=== PATIENT | male | born 1950 | race Caucasian/White ===

== ENCOUNTER 2022-06-06 13:29 | Outpatient (CLI) | payer MEDICARE, SELFPAY ==
--- NOTE | ~2022-06-06 | XR_ITS ---
XR chest 2V 06/06/2022 13:51 Indication: Acute bronchitis with bronchospasm Procedure: 2 view chest Comparison: No prior studies for comparison. Findings: There is consolidation of the left upper lobe with volume loss. There are nodular densities of the left mid and upper thorax. Heart size normal. There is left basilar atelectasis/scarring. Sma ll left pleural effusion. Impression: 1: Consolidation left upper lobe medially with volume loss. Differential diagnosis includes atelectas is and/or pneumonia. Cannot exclude centrally obstructing mass. There are nodules in the left mid and upper lung. Follow-up CT chest with contrast recommended. Reviewed, dictated and finalized at location A. Impression: 1: Consolidation left upper lobe medially with volume loss. Differential diagno sis includes atelectasis and/or pneumonia. Cannot exclude centrally obstructing mass. There are nodules in the left mid and upper lung. Follow-up CT chest wit h contrast recommended.
== END 2022-06-06 13:30 | disposition home or self-care (01) ==
LOC: CHSIMG 13:34
PROVIDERS: PCP Physician Assistant; Visit Provider Physician Assistant
DX: J20.9 Acute bronchitis, unspecified (principal)
CPT/HCPCS: 71046

== ENCOUNTER 2022-08-15 09:01 | Emergency (ER) | payer MEDICARE, SELFPAY ==
[2022-08-15 09:05] VITALS: BP 94/60; PULSE 80; RESP 20; TEMP 36.5; O2SAT 95
--- NOTE | 2022-08-15 09:07 | ED.GENADULT ---
HPI - General Adult General Chief complaint: Unspecified Stated complaint: LOW BLOOD PRESSURE Time Seen by Provider: 08/15/22 09:03 Source: patient and RN notes reviewed Mode of arrival: ambulatory Limitations: no limitations History of Present Illness HPI narrative: patient states his blood pressures been running low past few days. Does not really have any symptoms. He just monitors it at home. He has a multitude of other problems including AFib, hypertension, type 2 diabetes, hyperlipidemia, COPD. [facility] because of blood pressure was 77/49 MD complaint: Low Blood Pressure Onset (ago): day(s) (3-4) Associated symptoms: denies other symptoms Treatments prior to arrival: none Related Data Home Medications Medication Instructions Recorded Confirmed albuterol 90 mcg/actuation aerosol 90 mcg inhalation Q4-6H PRN 08/15/22 08/15/22 inhaler Wheezing apixaban 5 mg tablet 5 mg PO BID 08/15/22 08/15/22 carvedilol 25 mg tablet 25 mg PO BID 08/15/22 08/15/22 cyclobenzaprine 10 mg tablet 10 mg PO TID PRN Pain 08/15/22 08/15/22 diclofenac sodium 1 % topical gel 2 g topical QID 08/15/22 08/15/22 empagliflozin 25 mg tablet 25 mg PO DAILY 08/15/22 08/15/22 hydroxychloroquine 200 mg tablet 200 mg PO DAILY 08/15/22 08/15/22 isosorbide mononitrate 60 mg mg PO 08/15/22 tablet,extended release 24 hr lisinopril 40 mg tablet 40 mg PO DAILY 08/15/22 08/15/22 magnesium oxide 400 mg PO DAILY 08/15/22 08/15/22 melatonin 5 mg tablet 5 mg PO HS 08/15/22 08/15/22 metformin 1,000 mg tablet 1,000 mg PO BID 08/15/22 08/15/22 nifedipine 30 mg tablet,extended 30 mg PO DAILY 08/15/22 08/15/22 release 24 hr omega-3 fatty acids 1,000 mg PO DAILY 08/15/22 08/15/22 rosuvastatin 10 mg tablet 10 mg PO QHS 08/15/22 08/15/22 semaglutide 1 mg/dose (2 mg/1.5 1 mg subcut WEEKLY 08/15/22 08/15/22 mL) subcutaneous pen injector (Ozempic) spironolactone 25 mg tablet 25 mg PO DAILY 08/15/22 08/15/22 tiotropium 2.5 mcg-olodaterol 2.5 1 puff inhalation DAILY 08/15/22 08/15/22 mcg/actuation mist for inhalation (Stiolto Respimat) Allergies Allergy/AdvReac Type Severity Reaction Status Date / Time No Known Allergies Allergy Verified 08/15/22 09:28 Review of Systems Review of Systems: All systems reviewed & are unremarkable except as noted in HPI and below PMFSH Past Medical History Medical History (Updated 08/15/22 @ 10:30 by Lavell Tineo MD) Afib COPD (chronic obstructive pulmonary disease) Coronary artery disease Hypertension Morbid obesity Type 2 diabetes mellitus Surgical History Surgical History (Updated 08/15/22 @ 09:09 by Lavell Tineo MD) H/O neck surgery x3 History of carpal tunnel release bilateral Social History Social History (Updated 08/15/22 @ 09:09 by Lavell Tineo MD) Smoking status: Former smoker Exam Const: General: healthy appearing, no acute distress and alert Nutritional Appearance: well nourished and obese Orientation/consciousness: patient oriented x3 Limitations: no limitations HENMT: Head: normal to inspection Ears: external ears normal Eyes: Conjunctivae: conjunctivae normal Pupils: Equal, round and reactive pupils present EOM: EOMs intact bilaterally Neck: Neck: normal visual inspection Resp: Effort & Inspection: normal respiratory effort Auscultation: wheezes inspiratory wheezes ( left upper lobe posteriorly not new according to patient) Cardio: Rate: regular rate Rhythm: regular rhythm GI: GI Palp: Yes Soft to palpation and No Tenderness to palpation present (GI) Auscultation: normal bowel sounds Back/Spine/Pelvis: Cervical Spine: cervical ROM normal Thoracic/Lumbar Spine: thoraco-lumbar ROM normal Skin: General skin exam: normal color Rashes: no rashes Neuro: General: patient oriented x3 Speech: normal speech Gait exam (Neuro): Normal gait present ( walks with a cane) Extrem: General: normal to inspection and no
[2022-08-15 09:25] LABS: Basophils Absolute Auto 0.04 K/mm3 (0.00-0.10); Basophils Percent Auto 0.8 % (0.0-1.0); Eosinophils Absolute Auto 0.12 K/mm3 (0.02-0.50); Eosinophils Percent Auto 2.4 % (1.0-6.0); Hematocrit 44.8 % (37.0-46.0); Hemoglobin 14.4 g/dL (12.4-15.3); Immature Granulocyte Absolute 0.04 K/mm3 (0.00-0.00); Immature Granulocyte Percent A 0.8 % (0.0-0.0); Lymphocytes Absolute Auto 1.72 K/mm3 (1.10-4.50); Lymphocytes Percent Auto 34.3 % (18.0-42.0); Mean Corpuscular HGB Conc 32.1 g/dL (32.0-36.0); Mean Corpuscular Hemoglobin 31.6 pg (27.0-31.0); Mean Corpuscular Volume 98.5 fL (78.0-102.0); Mean Platelet Volume 9.1 fl (8.7-11.0); Neutrophils Absolute Auto 2.9 K/mm3 (1.7-7.2); Neutrophils Percent Auto 57.7 % (50.0-70.0); Platelet Count Result 158 K/mm3 (150-420); Red Blood Count 4.55 M/mm3 (4.70-6.10); Red Cell Distribution Width 12.5 % (11.6-14.4)
[2022-08-15 09:43] LABS: Alanine Aminotransferase 18 U/L (16-63); Albumin Level 3.2 g/dL (3.4-5.0); Alkaline Phosphatase 59 U/L (46-116); Anion Gap 9 mmol/L (8-16); Aspartate Amino Transferase 13 U/L (15-37); Bilirubin,Total 0.4 mg/dL (0.00-1.00); Blood Urea Nitrogen 30 mg/dL (7-18); Calcium 8.2 mg/dL (8.5-10.1); Carbon Dioxide 25 mmol/L (21-32); Chloride 105 mmol/L (98-108); Estimated CRCL calculation 43 ml/min; Estimated Glomerular Filt Rate 45; Glucose 178 mg/dL (70-99); Magnesium 1.8 mg/dL (1.8-2.4); Osmolality Calculated 298 mOsm/kg (285-295); Potassium 3.8 mmol/L (3.5-5.1); Sodium 139 mmol/L (136-145); Total Protein 6.4 g/dL (6.4-8.2)
[2022-08-15 09:51] VITALS: BP 91/60; PULSE 79; RESP 18; O2SAT 94
[2022-08-15 10:30] VITALS: BP 92/54; PULSE 71; RESP 18; TEMP 36.4; O2SAT 94
== END 2022-08-15 10:31 | disposition home or self-care (01) ==
PROVIDERS: Emergency Provider Emergency Medicine; PCP Physician Assistant
DX: I95.2 Hypotension due to drugs (principal); I48.91 Unspecified atrial fibrillation; J44.9 Chronic obstructive pulmonary disease, unspecified; I25.10 Atherosclerotic heart disease of native coronary artery without angina pectoris; E11.9 Type 2 diabetes mellitus without complications; Z87.891 Personal history of nicotine dependence
CPT/HCPCS: 36415; 80053; 83735; 85025; 99283

== ENCOUNTER 2022-09-08 07:58 | Outpatient (CLI) | payer MEDICARE, SELFPAY | END 2022-09-08 07:59 | disposition home or self-care (01) | LOC: CHSIMG 07:59 | PROVIDERS: PCP Physician Assistant; Visit Provider Physician Assistant | DX: R91.8 Other nonspecific abnormal finding of lung field (principal) | CPT/HCPCS: 99199 ==

== ENCOUNTER 2022-09-09 07:59 | Outpatient (CLI) | payer MEDICARE, SELFPAY ==
--- NOTE | ~2022-09-09 | CT_ITS ---
EXAMINATION: CT diagnostic chest w con DATE: 09/09/2022 08:45 INDICATION: Abnormal consolidation of the left upper lobe on recent chest x-ray. TECHNIQUE: Computed tomography (CT) of the chest was performed without intravenous contrast. The dose -length product was 574.03 mGy-cm. Automated exposure control and iterative reconstruction technique were employed. COMPARISON: Chest x-ray dated 06/06/2022 FINDINGS: There is abnormal soft tissue involving the left hilum as well as the left upper and lower lobes. There is narrowing of the left upper lobe and left lower lobe bronchi. Mildly enlarged right p aratracheal lymph node measures 1.8 cm. Right hilar lymphadenopathy. There is subcarinal lymphadenopa thy. No significant pleural or pericardial effusion. No evidence for pulmonary embolism. Small hiatal hernia. Thickening of the esophagus. There is a low-density mass of the right hepatic lobe partially visualized, image 114, measuring 2.9 x 1.4 cm. There are enlarged lymph nodes along the lesser curva ture of the stomach and the jessica hepatis. No focal lytic or blastic lesions. Mild thoracic spondylos is. IMPRESSION: 1. Abnormal soft tissue involving the left hilum, left upper lobe and left lower lobe with narrowing of the bronchi, suspicious for malignancy. Recommend correlation with bronchoscopy. 2: Mediastinal, right hilar and upper abdominal lymphadenopathy, suspicious for metastatic disease. 3: Partially visualized right hepatic lobe mass measuring 2.9 cm. Recommend correlation with contras t-enhanced CT or MRI of the abdomen for further assessment. Cannot exclude metastatic disease. Reviewed, dictated and finalized at location A. ORADIO OPERATOR IMPRESSION: 1. Abnormal soft tissue involving the left hilum, left upper lobe and left lowe r lobe with narrowing of the bronchi, suspicious for malignancy. Recommend trerance elation with bronchoscopy. 2: Mediastinal, right hilar and upper abdominal lymphadenopathy, suspicious fo r metastatic disease. 3: Partially visualized right hepatic lobe mass measuring 2.9 cm. Recommend co rrelation with contrast-enhanced CT or MRI of the abdomen for further assessmen t. Cannot exclude metastatic disease.
== END 2022-09-09 08:00 | disposition home or self-care (01) ==
LOC: CHSIMG 08:02
PROVIDERS: PCP Physician Assistant; Visit Provider Physician Assistant
DX: R91.8 Other nonspecific abnormal finding of lung field (principal); R59.0 Localized enlarged lymph nodes; R16.0 Hepatomegaly, not elsewhere classified
CPT/HCPCS: 71260; Q9967

== ENCOUNTER 2023-08-06 11:10 | Emergency (ER) | payer MEDICARE, SELFPAY ==
[2023-08-06] VITALS (36 sets, daily range): BP systolic 76–110; BP diastolic 54–77; PULSE 0–89; RESP 14–23; TEMP 36.7; O2SAT 93–98
--- NOTE | ~2023-08-06 | XR_ITS ---
XR chest 2V 08/06/2023 12:12 Indication: Cough. Difficulty breathing. Procedure: 2 view chest Comparison: Comparison to multiple prior studies sequentially, with oldest reviewed study dated 12/2021. Findings: There is consolidation of the left upper lobe with volume loss, suspicious for underlying c entrally obstructing bronchogenic carcinoma as described on prior CT. Heart size normal. Right lung c lear. No significant effusion. No pneumothorax. No focal lytic or blastic lesions. Impression: 1: Consolidation with volume loss in the left upper thorax with hilar retraction superiorly. Findings suspicious for centrally obstructing bronchogenic carcinoma. Reviewed, dictated and finalized at location B. DENT PROGRAMS ASSISTANT Impression: 1: Consolidation with volume loss in the left upper thorax with hilar retractio n superiorly. Findings suspicious for centrally obstructing bronchogenic carcin jp.
--- NOTE | ~2023-08-06 | CT_ITS ---
EXAMINATION: CT brain wo con DATE: 08/06/2023 14:11 INDICATION: Dizziness. Fall. TECHNIQUE: Computed tomography (CT) of the head was performed without intravenous contrast. The dose- length product was 605.33 mGy-cm. Automated exposure control and iterative reconstruction technique w ere employed. COMPARISON: None FINDINGS: Brain parenchymal volume is normal. There are scattered mild periventricular and subcortica l white matter changes, most likely related to small vessel ischemic disease (microangiopathy). No ac [place] intracranial hemorrhage, infarction, mass or mass effect. No ventriculomegaly or midline shift. B asilar cisterns are patent. Paranasal sinuses and mastoids are pneumatized. No depressed skull fractu res. IMPRESSION: 1. No acute intracranial abnormality. Reviewed, dictated and finalized at location B. CARE AIDE
--- NOTE | ~2023-08-06 | CT_ITS ---
EXAMINATION: CT diagnostic chest wo con DATE: 08/06/2023 14:11 INDICATION: Cough. Respiratory difficulty. TECHNIQUE: Computed tomography (CT) of the chest was performed without intravenous contrast. The dose -length product was 605.33 mGy-cm. Automated exposure control and iterative reconstruction technique were employed. COMPARISON: CT dated 09/09/2022 FINDINGS: There is stable mediastinal and axillary lymphadenopathy. There is abnormal soft tissue of the left hilum involving the upper and lower lobes with spiculated margins. The area of consolidation is smaller than on prior examination. There is narrowing of the left upper and lower lobe bronchi wh ich are encased by the soft tissue. Additional small 2 mm scattered right lung nodules are unchanged. There are calcified granulomas of the right lung base. IMPRESSION: 1. Abnormal consolidative soft tissue involving the left hilum, upper and lower lobes extending to th e apex with adjacent pleural thickening and encasement of the upper and lower lobe bronchi which are narrowed. Findings are suspicious for malignancy. The volume of soft tissue appears slightly less edelmira n on prior examination. 2: Stable axillary and mediastinal lymphadenopathy, nonspecific. Reviewed, dictated and finalized at location B. BING TECHNICIAN IMPRESSION: 1. Abnormal consolidative soft tissue involving the left hilum, upper and lower lobes extending to the apex with adjacent pleural thickening and encasement of the upper and lower lobe bronchi which are narrowed. Findings are suspicious f or malignancy. The volume of soft tissue appears slightly less than on prior ex amination. 2: Stable axillary and mediastinal lymphadenopathy, nonspecific.
--- NOTE | 2023-08-06 11:20 | ECG_ITS ---
Measurements Intervals [place] Rate: 75 P: 96 MN: 165 QRS: -78 QRSD: 157 T: 39 QT: 434 QTc: 486 Interpretive Statements SINUS RHYTHM RIGHT BUNDLE BRANCH BLOCK [120+ ms QRS DURATION, UPRIGHT V1, 40+ ms S IN I/aVL/V4/V5/V6] LEFT ANTERIOR FASCICULAR BLOCK [QRS AXIS <= -45, QR IN I, RS IN II] ABNORMAL ECG NO PREVIOUS ECG AVAILABLE FOR COMPARISON Electronically Signed On 08-06-2023 15:34:54 LINEN SUPPLY LOAD BUILDER by Rodrigo Arroyo M.D.
--- NOTE | 2023-08-06 12:01 | ED.GENADULT ---
HPI - General Adult General Chief complaint: Dizziness Stated complaint: Dizziness and cough Time Seen by Provider: 08/06/23 11:18 Source: patient Mode of arrival: ambulatory Limitations: no limitations History of Present Illness HPI narrative: 73 yo M with PMHx of COPD, unspecified cancer in the chest, CAD s/p several stents, DM2, on Eliquis presents to ED due to lightheadedness and cough productive of green phlegm. Said he fell on the left side a few days ago due to a black out episode and since then has been feeling lightheaded. Also c/o of cough productive of green phlegm. No fever or chills. A/w shortness of breath but no chest pain. Related Data Home Medications Medication Instructions Recorded Confirmed albuterol 90 mcg/actuation aerosol 90 mcg inhalation Q4-6H PRN 08/15/22 08/15/22 inhaler Wheezing apixaban 5 mg tablet 5 mg PO BID 08/15/22 08/15/22 carvedilol 25 mg tablet 25 mg PO BID 08/15/22 08/15/22 cyclobenzaprine 10 mg tablet 10 mg PO TID PRN Pain 08/15/22 08/15/22 diclofenac sodium 1 % topical gel 2 g topical QID 08/15/22 08/15/22 empagliflozin 25 mg tablet 25 mg PO DAILY 08/15/22 08/15/22 hydroxychloroquine 200 mg tablet 200 mg PO DAILY 08/15/22 08/15/22 isosorbide mononitrate 60 mg mg PO 08/15/22 tablet,extended release 24 hr lisinopril 40 mg tablet 40 mg PO DAILY 08/15/22 08/15/22 magnesium oxide 400 mg PO DAILY 08/15/22 08/15/22 melatonin 5 mg tablet 5 mg PO HS 08/15/22 08/15/22 metformin 1,000 mg tablet 1,000 mg PO BID 08/15/22 08/15/22 nifedipine 30 mg tablet,extended 30 mg PO DAILY 08/15/22 08/15/22 release 24 hr omega-3 fatty acids 1,000 mg PO DAILY 08/15/22 08/15/22 rosuvastatin 10 mg tablet 10 mg PO QHS 08/15/22 08/15/22 semaglutide 1 mg/dose (2 mg/1.5 1 mg subcut WEEKLY 08/15/22 08/15/22 mL) subcutaneous pen injector (Ozempic) spironolactone 25 mg tablet 25 mg PO DAILY 08/15/22 08/15/22 tiotropium 2.5 mcg-olodaterol 2.5 1 puff inhalation DAILY 08/15/22 08/15/22 mcg/actuation mist for inhalation (Stiolto Respimat) Allergies Allergy/AdvReac Type Severity Reaction Status Date / Time No Known Allergies Allergy Verified 08/06/23 11:41 Review of Systems Constitutional: Constitutional: Reports as per HPI and Reports no additional constitutional complaints Eyes: Eyes: Reports as per HPI and Reports no additional eye complaints ENT: Reports system reviewed and no additional complaints, except as documented and Reports as per HPI Cardiovascular: Cardiovascular: Reports as per HPI and Reports no additional cardiovascular complaints Respiratory: Respiratory: Reports as per HPI and Reports no additional respiratory complaints Gastrointestinal: Gastrointestinal: Reports as per HPI and Reports no additional gastrointestinal complaints Genitourinary: Genitourinary: Reports as per HPI Musculoskeletal: Musculoskeletal: Reports no additional musculoskeletal complaints and Reports as per HPI Integumentary/Breasts: Skin/Breast: Reports system reviewed and no additional complaints, except as docu and Reports as per HPI Neurologic: Reports system reviewed and no additional complaints, except as documented and Reports as per HPI Psychiatric: Psychiatric: Reports no additional psychiatric complaints and Reports as per HPI Endocrine: Endocrine: Reports no additional endocrine complaints and Reports as per HPI Hematologic/Lymphatic: Hematologic/Lymphatic: Reports no additional hematologic/lymphatic complaints and Reports as per HPI Allergic/Immunologic: Allergic/Immunologic: Reports no additional allergic/immunologic complaints and Reports as per HPI PMFSH Past Medical History Medical History (Updated 08/06/23 @ 15:15 by Julius Munoz MD) Afib COPD (chronic obstructive pulmonary disease) Coronary artery disease Hypertension Morbid obesity Type 2 diabetes mellitus Surgical History Surgical History (Updated 08/15/22 @ 09:09 by Lavell Tineo MD) H/O neck surgery x3 History of
[2023-08-06 12:16] LABS: Basophils Absolute Auto 0.04 K/mm3 (0.00-0.10); Basophils Percent Auto 0.8 % (0.0-1.0); Eosinophils Absolute Auto 0.06 K/mm3 (0.02-0.50); Eosinophils Percent Auto 1.2 % (1.0-6.0); Hematocrit 45.4 % (37.0-46.0); Hemoglobin 14.8 g/dL (12.4-15.3); Immature Granulocyte Absolute 0.05 K/mm3 (0.00-0.00); Lymphocytes Absolute Auto 2.09 K/mm3 (1.10-4.50); Lymphocytes Percent Auto 40.6 % (18.0-42.0); Mean Corpuscular HGB Conc 32.6 g/dL (32.0-36.0); Mean Corpuscular Hemoglobin 32.7 pg (27.0-31.0); Mean Corpuscular Volume 100.2 fL (78.0-102.0); Mean Platelet Volume 8.8 fl (8.7-11.0); Monocytes Absolute Auto 0.24 K/mm3 (0.10-0.90); Monocytes Percent Auto 4.7 % (2.0-11.0); Neutrophils Absolute Auto 2.7 K/mm3 (1.7-7.2); Neutrophils Percent Auto 51.7 % (50.0-70.0); Platelet Count Result 179 K/mm3 (150-420); Red Blood Count 4.53 M/mm3 (4.70-6.10); Red Cell Distribution Width 13.2 % (11.6-14.4); White Blood Count 5.2 K/mm3 (4.8-10.8)
[2023-08-06 12:39] LABS: Alanine Aminotransferase 24 U/L (16-63); Albumin Level 3.3 g/dL (3.4-5.0); Alkaline Phosphatase 64 U/L (46-116); Anion Gap 7 mmol/L (8-16); Aspartate Amino Transferase 12 U/L (15-37); Bilirubin,Total 0.5 mg/dL (0.00-1.00); Blood Urea Nitrogen 21 mg/dL (7-18); Calcium 8.6 mg/dL (8.5-10.1); Carbon Dioxide 32 mmol/L (21-32); Chloride 102 mmol/L (98-108); Estimated Glomerular Filt Rate 45; Glucose 182 mg/dL (70-99); Osmolality Calculated 300 mOsm/kg (285-295); Potassium 3.8 mmol/L (3.5-5.1); Sodium 141 mmol/L (136-145); Total Protein 6.8 g/dL (6.4-8.2)
[2023-08-06 12:39] LABS: Glucose Point of Care 141 mg/dl (65-105)
[2023-08-06 12:42] LABS: Troponin I 80.7 ng/L (0.00-60.4)
[2023-08-06 12:43] LABS: NT Pro B Type Natriuretic Pept 448 pg/mL (0-125)
[2023-08-06 13:03] LABS: D Dimer 0.32 mg/L (0.19-0.50)
--- NOTE | 2023-08-06 13:51 | PC.NURSE ---
Patient taken down to CT.
--- NOTE | 2023-08-06 14:11 | PC.NURSE ---
Patient back in room from CT.
[2023-08-06 14:39] LABS: Troponin I 76.4 ng/L (0.00-60.4)
== END 2023-08-06 15:33 | disposition home or self-care (01) ==
PROVIDERS: Emergency Provider Emergency Medicine; PCP Physician Assistant
DX: I95.1 Orthostatic hypotension (principal); R06.02 Shortness of breath; R42 Dizziness and giddiness; T50.905A Adverse effect of unspecified drugs, medicaments and biological substances, initial encounter; I13.0 Hypertensive heart and chronic kidney disease with heart failure and stage 1 through stage 4 chronic kidney disease, or unspecified chronic kidney disease; I50.9 Heart failure, unspecified; N18.9 Chronic kidney disease, unspecified; E11.22 Type 2 diabetes mellitus with diabetic chronic kidney disease; J44.9 Chronic obstructive pulmonary disease, unspecified; I25.10 Atherosclerotic heart disease of native coronary artery without angina pectoris; I48.91 Unspecified atrial fibrillation; Z79.01 Long term (current) use of anticoagulants; Z87.891 Personal history of nicotine dependence
CPT/HCPCS: 36415; 70450; 71046; 71250; 80053; 82948; 83880; 84484; 85025; 85380; 93005; 99284

== ENCOUNTER 2023-10-03 06:59 | Emergency (ER) | payer MEDICARE, SELFPAY ==
[2023-10-03] VITALS (59 sets, daily range): BP systolic 124–181; BP diastolic 70–107; PULSE 82–105; RESP 16–29; TEMP 36.4–36.7; O2SAT 90–100
--- NOTE | ~2023-10-03 | XR_ITS ---
Portable chest x-ray Comparison: 08/06/2023 Clinical History: Shortness of breath Findings: Left suprahilar airspace opacities unchanged. Right lung remains clear. Cardiomediastinal silhouette is stable. Bones and soft tissues are unremarkable. Impression: Stable left suprahilar/left upper lobe airspace opacity. Based on prior chest CT, this is compatible with malignancy and/or post therapy change. Reviewed, dictated and finalized at location M. E SYRUP MAKER Impression: Stable left suprahilar/left upper lobe airspace opacity. Based on prior chest C T, this is compatible with malignancy and/or post therapy change.
--- NOTE | 2023-10-03 07:11 | ED.SOB ---
HPI - SOB/Dyspnea General Chief Complaint: Shortness of Breath/Dyspnea Stated Complaint: SOB Time Seen by Provider: 10/03/23 07:03 Source: patient Mode of arrival: ambulatory Limitations: no limitations History of Present Illness HPI Narrative: 73-year-old male with a history of ex smoking, diabetes mellitus, CAD status post multiple stents( I feel really the last day of 0the great 5 years ago), atrial fibrillation on Eliquis, COPD, small-cell lung cancer status chemo / RT 5 years ago presents to the ER with a one-week history of -- worsening shortness of breath -- wheezing -- cough with mucopurulent sputum -- pleuritic chest pain patient denies chest pain. No fever or chills MD elicited complaint: shortness of breath, cough, pain with inspiration and chest pain Pertinent past history: COPD and congestive heart failure Onset (ago): week(s) ( 1 week) Timing: constant Exacerbating factors: exertion Relieving factors: nothing Known history of: COPD Associated symptoms: pain with inspiration, cough and chest congestion Treatment prior to arrival: none Related Data Home oxygen amount: none Home Medications Medication Instructions Recorded Confirmed albuterol 90 mcg/actuation aerosol 90 mcg inhalation Q4-6H PRN 08/15/22 08/15/22 inhaler Wheezing apixaban 5 mg tablet 5 mg PO BID 08/15/22 08/15/22 carvedilol 25 mg tablet 25 mg PO BID 08/15/22 08/15/22 cyclobenzaprine 10 mg tablet 10 mg PO TID PRN Pain 08/15/22 08/15/22 diclofenac sodium 1 % topical gel 2 g topical QID 08/15/22 08/15/22 empagliflozin 25 mg tablet 25 mg PO DAILY 08/15/22 08/15/22 hydroxychloroquine 200 mg tablet 200 mg PO DAILY 08/15/22 08/15/22 isosorbide mononitrate 60 mg mg PO 08/15/22 tablet,extended release 24 hr lisinopril 40 mg tablet 40 mg PO DAILY 08/15/22 08/15/22 magnesium oxide 400 mg PO DAILY 08/15/22 08/15/22 melatonin 5 mg tablet 5 mg PO HS 08/15/22 08/15/22 metformin 1,000 mg tablet 1,000 mg PO BID 08/15/22 08/15/22 nifedipine 30 mg tablet,extended 30 mg PO DAILY 08/15/22 08/15/22 release 24 hr omega-3 fatty acids 1,000 mg PO DAILY 08/15/22 08/15/22 rosuvastatin 10 mg tablet 10 mg PO QHS 08/15/22 08/15/22 semaglutide 1 mg/dose (2 mg/1.5 1 mg subcut WEEKLY 08/15/22 08/15/22 mL) subcutaneous pen injector (Ozempic) spironolactone 25 mg tablet 25 mg PO DAILY 08/15/22 08/15/22 tiotropium 2.5 mcg-olodaterol 2.5 1 puff inhalation DAILY 08/15/22 08/15/22 mcg/actuation mist for inhalation (Stiolto Respimat) Allergies Allergy/AdvReac Type Severity Reaction Status Date / Time No Known Allergies Allergy Verified 08/06/23 11:41 Review of Systems Review of Systems: All systems reviewed & are unremarkable except as noted in HPI and below Constitutional: Constitutional: Reports as per HPI and Reports no additional constitutional complaints Eyes: Eyes: Reports as per HPI and Reports no additional eye complaints ENT: Reports system reviewed and no additional complaints, except as documented and Reports as per HPI Cardiovascular: Cardiovascular: Reports as per HPI and Reports no additional cardiovascular complaints Respiratory: Respiratory: Reports as per HPI, Reports no additional respiratory complaints, Reports cough and Reports dyspnea Gastrointestinal: Gastrointestinal: Reports as per HPI and Reports no additional gastrointestinal complaints Genitourinary: Genitourinary: Reports no additional male genitourinary complaints and Reports as per HPI Musculoskeletal: Musculoskeletal: Reports no additional musculoskeletal complaints and Reports as per HPI Integumentary/Breasts: Skin/Breast: Reports system reviewed and no additional complaints, except as docu and Reports as per HPI Neurologic: Reports system reviewed and no additional complaints, except as documented and Reports as per HPI Psychiatric: Psychiatric: Reports no additional psychiatric complaints and Reports as per HPI Endocrine: Endocrine: Reports no additional endocrin
--- NOTE | 2023-10-03 07:20 | ECG_ITS ---
Measurements Intervals [place] Rate: 90 P: 98 IN: 156 QRS: -73 QRSD: 149 T: 15 QT: 383 QTc: 470 Interpretive Statements SINUS RHYTHM RIGHT BUNDLE BRANCH BLOCK LEFT ANTERIOR FASCICULAR BLOCK BASELINE WANDER- I, II, III, V5-V6 ABNORMAL ECG COMPARED TO ECG 08/06/2023 11:23:58 NO SIGNIFICANT CHANGES Electronically Signed On 10-03-2023 8:30:12 FAUCET POLISHER by Edis Dennison D.O.
[2023-10-03] MEDS: IPRATROPIUM 0.5 MG/ALBUTEROL SULFATE 2.5 MG AMPUL.NEB 3 ML INHALATION (07:34)
[2023-10-03] MEDS: methylPREDNISolone SOD SUCC 125 MG VIAL IM (07:36)
[2023-10-03 07:46] LABS: Basophils Absolute Auto 0.03 K/mm3 (0.00-0.10); Basophils Percent Auto 0.4 % (0.0-1.0); Eosinophils Absolute Auto 0.05 K/mm3 (0.02-0.50); Eosinophils Percent Auto 0.6 % (1.0-6.0); Hematocrit 44.8 % (37.0-46.0); Hemoglobin 14.9 g/dL (12.4-15.3); Immature Granulocyte Absolute 0.06 K/mm3 (0.00-0.00); Immature Granulocyte Percent A 0.7 % (0.0-0.0); Lymphocytes Absolute Auto 3.26 K/mm3 (1.10-4.50); Lymphocytes Percent Auto 38.8 % (18.0-42.0); Mean Corpuscular HGB Conc 33.3 g/dL (32.0-36.0); Mean Corpuscular Hemoglobin 33.1 pg (27.0-31.0); Mean Corpuscular Volume 99.6 fL (78.0-102.0); Mean Platelet Volume 9.1 fl (8.7-11.0); Monocytes Percent Auto 3.6 % (2.0-11.0); Neutrophils Absolute Auto 4.7 K/mm3 (1.7-7.2); Neutrophils Percent Auto 55.9 % (50.0-70.0); Platelet Count Result 177 K/mm3 (150-420); Red Cell Distribution Width 13.1 % (11.6-14.4); White Blood Count 8.4 K/mm3 (4.8-10.8)
[2023-10-03 07:49] LABS: Influenza A QL RT-PCR Negative (Negative); Influenza B QL RT-PCR Negative (Negative); RSV RNA, RT-PCR Negative (Negative); SARS-CoV-2 RNA PCR Negative (Negative); Strep Group A RT-PCR NOT DETECTED (Negative)
[2023-10-03 07:55] LABS: D Dimer 0.23 mg/L (0.19-0.50); INR 1.1; Partial Thromboplastin Time 37.5 SEC (23.90-30.70); Prothrombin Time 11.7 Seconds (9.50-12.10)
[2023-10-03 08:05] LABS: Alanine Aminotransferase 20 U/L (16-63); Albumin Level 3.1 g/dL (3.4-5.0); Alkaline Phosphatase 71 U/L (46-116); Anion Gap 11 mmol/L (8-16); Aspartate Amino Transferase 12 U/L (15-37); Blood Urea Nitrogen 15 mg/dL (7-18); Calcium 8.5 mg/dL (8.5-10.1); Carbon Dioxide 26 mmol/L (21-32); Chloride 103 mmol/L (98-108); Estimated CRCL calculation 59 ml/min; Estimated Glomerular Filt Rate > 60; Glucose 150 mg/dL (70-99); NT Pro B Type Natriuretic Pept 775 pg/mL (0-125); Osmolality Calculated 293 mOsm/kg (285-295); Sodium 140 mmol/L (136-145)
[2023-10-03 08:06] LABS: Troponin I 88.5 ng/L (0.00-60.4)
[2023-10-03] MEDS: AZITHROMYCIN 500 MG/NS 250 ML 500 MG/250 ML BAG 250 MG IVPB (08:56)
[2023-10-03 11:17] LABS: Troponin I 89.2 ng/L (0.00-60.4)
[2023-10-03 15:50] LABS: Troponin I 77.6 ng/L (0.00-60.4)
== END 2023-10-03 16:37 | disposition home or self-care (01) ==
PROVIDERS: Emergency Provider Internal Medicine Critical Care Medicine; PCP Physician Assistant
DX: J44.1 Chronic obstructive pulmonary disease with (acute) exacerbation (principal); R79.89 Other specified abnormal findings of blood chemistry; I25.10 Atherosclerotic heart disease of native coronary artery without angina pectoris; I48.91 Unspecified atrial fibrillation; Z85.118 Personal history of other malignant neoplasm of bronchus and lung; I10 Essential (primary) hypertension; E11.9 Type 2 diabetes mellitus without complications; Z79.01 Long term (current) use of anticoagulants; Z87.891 Personal history of nicotine dependence; Z20.822 Contact with and (suspected) exposure to COVID-19
CPT/HCPCS: 36415; 71045; 80053; 83605; 83880; 84484; 85025; 85380; 85610; 85730; 87637; 87651; 93005; 94640; 96365; 96372; 99284; J0456; J2930

== ENCOUNTER 2024-06-30 07:32 | Emergency (ER) | payer MEDICARE, SELFPAY ==
[2024-06-30] VITALS (24 sets, daily range): BP systolic 82–113; BP diastolic 59–91; PULSE 84–146; RESP 17–27; TEMP 35.9; O2SAT 95–100
--- NOTE | ~2024-06-30 | XR_ITS ---
EXAMINATION: XR chest 1V portable DATE: 06/30/2024 08:10 INDICATION: Chest pain. Shortness of breath. TECHNIQUE: A single frontal view of the chest was obtained. COMPARISON: Chest single view 10/03/2023, chest CT 08/06/2023 FINDINGS: There is volume loss of left hemithorax. There are airspace opacities in medial left mid an d upper lung zones. No pleural effusion or pneumothorax. The heart size is normal. There are changes of anterior and posterior fusion procedures in cervical spine. IMPRESSION: 1. Stable volume loss of left hemithorax with stable airspace opacities in medial left mid and upper lung zones, consistent with radiation fibrosis. Reviewed, dictated and finalized at location A. IMPRESSION: 1. Stable volume loss of left hemithorax with stable airspace opacities in medi al left mid and upper lung zones, consistent with radiation fibrosis.
--- NOTE | 2024-06-30 07:46 | ECG_ITS ---
Test Date: 2024-06-30 07:44:10 Measurements Intervals [place] Rate: 140 P: 0 AR: 0 QRS: 202 QRSD: 162 T: 40 QT: 348 QTc: 532 Interpretive Statements ATRIAL FIBRILLATION WITH RAPID VENTRICULAR RESPONSE RIGHT AXIS DEVIATION [QRS AXIS > 100] RIGHT BUNDLE BRANCH BLOCK [120+ ms QRS DURATION, UPRIGHT V1, 40+ ms S IN I/aVL/V4/V5/V6] No previous ECG available for comparison Electronically Signed On 07-01-2024 09:36:34 CDT by Pool Stauffer M.D.
--- NOTE | 2024-06-30 07:46 | ED.GENADULT ---
HPI - General Adult General Chief complaint: Shortness of Breath/Dyspnea Stated complaint: sob Time Seen by Provider: 06/30/24 07:45 Source: patient and family Mode of arrival: ambulatory Limitations: no limitations History of Present Illness HPI narrative: 89 years old white male came to the emergency room by private car complaining of shortness of breath over the last 3 days and gradually getting worse. Also complaining of dry cough, vomited 3 times prior to arrival to the emergency room. He denies any chest pain or abdominal pain or back pain. History of MRI time 7, 3 coronary stents, diabetes, hypertension, hyperlipidemia, atrial fibrillation on Eliquis. Patient is full code. History of neck surgery 3 months ago Related Data Home Medications Medication Instructions Recorded Confirmed apixaban 5 mg tablet 5 mg PO BID 08/15/22 06/30/24 carvedilol 25 mg tablet 25 mg PO BID 08/15/22 06/30/24 empagliflozin 25 mg tablet 12.5 mg PO DAILY 08/15/22 06/30/24 hydroxychloroquine 200 mg tablet 200 mg PO BID 08/15/22 06/30/24 melatonin 5 mg tablet 5 mg PO HS 08/15/22 06/30/24 metformin 1,000 mg tablet 1,000 mg PO BID 08/15/22 06/30/24 rosuvastatin 10 mg tablet 10 mg PO QHS 08/15/22 06/30/24 spironolactone 25 mg tablet 12.5 mg PO EVERY OTHER DAY 08/15/22 06/30/24 tiotropium 2.5 mcg-olodaterol 2.5 1 puff inhalation DAILY 08/15/22 06/30/24 mcg/actuation mist for inhalation (Stiolto Respimat) amlodipine 2.5 mg-benazepril 10 mg 1 cap PO DAILY 06/30/24 06/30/24 capsule ciclesonide 160 mcg/actuation 1 puff inhalation BID 06/30/24 06/30/24 aerosol inhaler (Alvesco) clopidogrel 75 mg tablet 75 mg PO DAILY 06/30/24 06/30/24 Allergies Allergy/AdvReac Type Severity Reaction Status Date / Time No Known Allergies Allergy Verified 06/30/24 07:58 Review of Systems Review of Systems: All systems reviewed & are unremarkable except as noted in HPI and below PMFSH Past Medical History Medical History Afib COPD (chronic obstructive pulmonary disease) Coronary artery disease Hypertension Morbid obesity Type 2 diabetes mellitus Surgical History Surgical History H/O neck surgery x3 History of carpal tunnel release bilateral Social History Social History Smoking status: Former smoker Exam Narrative: General appearance: Well-developed, well-nourished Skin: Normal color Head: Normocephalic, nontraumatic Eyes: Clear conjunctiva ENT: Oropharynx normal, ears normal, nose normal Neck: Supple, nontender Chest and respiratory: Airway patent, no respiratory distress, no accessory muscle use, diminution of air entry bilaterally at the bases Heart: tachycardia, irregular irregularity Abdomen: Soft, nontender, no organomegaly, quiet bowel sounds Vascular: Normal peripheral pulses, normal capillary refill. Musculoskeletal: Normal range of motion, nontender back Neurologic: Alert and oriented ?3, MACHINE ROPE MAKER is normal as tested, no gross motor deficit Course Consultations Consultation #1: Dr. Murray Date: 06/30/24 Vital Signs Vital signs: Vital Signs Temperature 35.9 C L 06/30/24 07:32 Pulse Rate 146 H 06/30/24 07:32 Respiratory Rate 24 H 06/30/24 07:32 Blood Pressure 95/82 L 06/30/24 07:32 Pulse Oximetry 100 06/30/24 07:32 Oxygen Delivery Room Air 06/30/24 07:32 Temperature 35.9 C L 06/30/24 07:32 Pulse Rate 85 06/30/24 10:32 Respiratory Rate 18 06/30/24 10:32 Blood Pressure 111/84 06/30/24 10:31 Pulse Oximetry 99 06/30/24 10:32 Oxygen Delivery Nasal Cannula 06/30/24 10:32 Oxygen Flow Rate 2 06/30/24 10:32 Medical Decision Making MDM Narrative Medical decision making narrative: 74 years old white male came to the ED by private car with shortness of breath over the last 3 days, getting worse. Vital signs on arrival showed heart rate of 146 beats per minute, AFib with RVR, blood pressure 95/82, Physical examination showing irregular tachycardia, diminution of air entry bilaterally at the lung bases, restless, anxious patient. Differential diagnosis include coronary artery disease, CHF, dehydration, electrolyte imbalance, pneumonia, COPD exacerbation, tachyarrhythmia. 5 mg of Cardizem IV bolus ordered, subsequently no changes of the heart rate, blood pressure dropped to 83/45, Five hundred normal saline IV bolus ordered, improving blood pressure, heart rate still in the 130 AFib with RVR. Patient's heart rate suddenly converted to normal sinus rhythm Repeated EKG showed a normal sinus rhythm at 80 beats per minute. Blood workup showed normal WBC, creatinine of 1.5 which is elevated compared to the previous records, troponin is 90.8 Chest x-ray showed no acute abnormalities EKG on arrival showed AFib with RVR at 140 beats per minute Currently patient is a symptomatic Transferred to [facility] discussed with Dr. Murray Differential Diagnosis Differential Diagnosis: as above Vital Signs Vital Signs: Vital Signs Temperature 35.9 C L 06/30/24 07:32 Pulse Rate 146 H 06/30/24 07:32 Respiratory Rate 24 H 06/30/24 07:32 Blood Pressure 95/82 L 06/30/24 07:32 Pulse Oximetry 100 06/30/24 07:32 Oxygen Delivery Room Air 06/30/24 07:32 Temperature 35.9 C L 06/30/24 07:32 Pulse Rate 85 06/30/24 10:32 Respiratory Rate 18 06/30/24 10:32 Blood Pressure 111/84 06/30/24 10:31 Pulse Oximetry 99 06/30/24 10:32 Oxygen Delivery Nasal Cannula 06/30/24 10:32 Oxygen Flow Rate 2 06/30/24 10:32 Lab Data 06/30/24 07:40 06/30/24 07:40 Labs: Lab Results 06/30/24 06/30/24 Range/Units 07:40 08:08 WBC 7.9 (4.8-10.8) K/mm3 RBC 5.03 (4.70-6.10) M/mm3 Hgb 15.3 (12.4-15.3) g/dL Hct 47.4 H (37.0-46.0) % MCV 94.2 (78.0-102.0) fL MCH 30.4 (27.0-31.0) pg MCHC 32.3 (32-36) g/dL RDW 14.2 (11.6-14.4) % Plt Count 187 (150-420) K/mm3 MPV 10.4 (8.7-11.0) fl Immature Gran % (Auto) 0.8 H (0.0-0.0) % Neut % (Auto) 45.1 L (50.0-70.0) % Lymph % (Auto) 48.3 H (18.0-42.0) % Hitchcock % (Auto) 4.4 (2.0-11.0) % Eos % (Auto) 0.8 L (1.0-6.0) % Baso % (Auto) 0.6 (0.0-1.0) % Lymph # (Auto) 3.81 (1.10-4.50) K/mm3 Hitchcock # (Auto) 0.35 (0.10-0.90) K/mm3 Eos # (Auto) 0.06 (0.02-0.50) K/mm3 Baso # (Auto) 0.05 (0.00-0.10) K/mm3 Abs Immat Gran (auto) 0.06 H (0.00-0.00) K/mm3 Absolute Neuts (auto) 3.56 (1.70-7.20) K/mm3 Absolute Nucleated RBC 0.00 (0.00-0.00) K/mm3 Nucleated RBC % 0.0 (0-0.0) % PT 13.1 H (9.50-12.1) Seconds INR 1.2 APTT 27.6 (23.9-30.70) Sec Sodium 142 (136-145) mmol/L Potassium 4.0 (3.5-5.1) mmol/L Chloride 105 (98-108) mmol/L Carbon Dioxide 22 (21-32) mmol/L Anion Gap 15 H (4-12) mmol/L BUN 23 H (7-18) mg/dL Creatinine 1.54 H (0.70-1.30) mg/dL Estim Creat Clear Calc 42 ml/min Estimated GFR 45 L (59 - ) Glucose 214 H (70-99) mg/dL Calculated Osmolality 303 H (285-295) mOsm/kg Calcium 8.6 (8.5-10.1) mg/dL Total Bilirubin 0.6 (0.00-1.00) mg/dL AST 14 L (15-37) U/L ALT 14 L (16-63) U/L Alkaline Phosphatase 88 (46-116) U/L Troponin I 90.8 H* (0.00-60.4) ng/L NT-Pro-B Natriuret Pep 3736 H (0-125) pg/mL Total Protein 6.9 (6.4-8.2) g/dL Albumin 3.3 L (3.4-5.0) g/dL Influenza A (RT-PCR) Negative (Negative) Influenza B (RT-PCR) Negative (Negative) RSV (RT-PCR) Negative (Negative) SARS-CoV-2 RNA (RT-PCR) Negative (Negative) ABG Data ABG results: 06/30/24 08:30 Puncture Site Left radial ABG pH 7.42 ABG pCO2 30.7 L ABG pO2 88.3 H ABG PO2/FiO2 Ratio Not Reportable ABG HCO3 19.2 L ABG O2 Saturation 95.9 ABG O2 Content 19.6 ABG Base Excess -4.1 L A-a Gradient Not Reportable Oxyhemoglobin 95.2 O2 Delivery Device Room air O2 Liters/Min 0.0 Imaging Data Radiologist's impression: Impressions Chest X-Ray 06/30/24 08:13 IMPRESSION: 1. Stable volume loss of left hemithorax with stable airspace opacities in medial left mid and upper lung zones, consistent with radiation fibrosis. ECG Data EKG #1: Attestation: I personally reviewed and interpreted this ECG as follows: ECG completion date: 06/30/24 Interpretation: atrial fibrillation at 104 T the per minute with RVR, right axis deviation, right bundle-branch block, septal myocardial infarction, probably old. With EKG. EKG #2: Attestation: I personally reviewed and interpreted this ECG as follows: ECG completion date: 06/30/24 Prior ECG tracings: available for review Interpretation: normal sinus rhythm at 80 beats per minute, right bundle sonu block, compared to EKG earlier today AFib resolved. Critical Care Time Critical Care Time Critical Care Time: Yes (30) Total Critical Care Time: 30 Discharge Plan Discharge Clinical Impression: Acute dyspnea, PAYAL (acute kidney injury), Elevated troponin, Atrial fibrillation with rapid ventricular response Patient Disposition: Acute Care Hospital Condition: Improved Additional Instructions: transferred to [facility] Prescriptions: No Action albuterol sulfate 90 mcg/actuation HFA aerosol inhaler 2 puff inhalation QID PRN (Reason: shortness of breath or wheezing) Qty: 8.5 0RF carvedilol 25 mg Tablet 25 mg PO BID Rx Instructions: must administer with a meal/food hydroxychloroquine 200 mg Tablet 200 mg PO BID apixaban 5 mg Tablet 5 mg PO BID empagliflozin 25 mg Tablet 12.5 mg PO DAILY spironolactone 25 mg Tablet 12.5 mg PO EVERY OTHER DAY metformin 1,000 mg Tablet 1,000 mg PO BID rosuvastatin 10 mg Tablet 10 mg PO QHS melatonin 5 mg Tablet 5 mg PO HS Stiolto Respimat 2.5-2.5 mcg/actuation Mist 1 puff INHALATION DAILY amlodipine-benazepril 2.5-10 mg Capsule 1 cap PO DAILY clopidogrel 75 mg Tablet 75 mg PO DAILY Alvesco 160 mcg/actuation Hfa Aerosol Inhaler 1 puff INHALATION BID Follow-up/Referrals: UNKNOWN,DOCTOR [Primary Care Provider] -
[2024-06-30] MEDS: dilTIAZem HCl INJ 25 MG/5 ML VIAL 5 MG IV PUSH (07:48)
--- NOTE | 2024-06-30 07:54 | PC.NURSE ---
crash cart placed by the door
--- NOTE | 2024-06-30 07:55 | PC.NURSE ---
lab at the bedside to draw abg
[2024-06-30 08:00] LABS: Basophils Absolute Auto 0.05 K/mm3 (0.00-0.10); Basophils Percent Auto 0.6 % (0.0-1.0); Eosinophils Absolute Auto 0.06 K/mm3 (0.02-0.50); Eosinophils Percent Auto 0.8 % (1.0-6.0); Hematocrit 47.4 % (37.0-46.0); Hemoglobin 15.3 g/dL (12.4-15.3); Immature Granulocyte Absolute 0.06 K/mm3 (0.00-0.00); Immature Granulocyte Percent A 0.8 % (0.0-0.0); Lymphocytes Absolute Auto 3.81 K/mm3 (1.10-4.50); Lymphocytes Percent Auto 48.3 % (18.0-42.0); Mean Corpuscular HGB Conc 32.3 g/dL (32-36); Mean Corpuscular Hemoglobin 30.4 pg (27.0-31.0); Mean Corpuscular Volume 94.2 fL (78.0-102.0); Mean Platelet Volume 10.4 fl (8.7-11.0); Monocytes Absolute Auto 0.35 K/mm3 (0.10-0.90); Monocytes Percent Auto 4.4 % (2.0-11.0); Neutrophils Absolute Auto 3.56 K/mm3 (1.70-7.20); Neutrophils Percent Auto 45.1 % (50.0-70.0); Platelet Count Result 187 K/mm3 (150-420); Red Blood Count 5.03 M/mm3 (4.70-6.10); Red Cell Distribution Width 14.2 % (11.6-14.4); White Blood Count 7.9 K/mm3 (4.8-10.8)
[2024-06-30] MEDS: SODIUM CHLORIDE 0.9% IV 500 ML 999 ML (08:03)
[2024-06-30 08:08] LABS: INR 1.2; Partial Thromboplastin Time 27.6 Sec (23.9-30.70)
[2024-06-30 08:31] LABS: Prothrombin Time 13.1 Seconds (9.50-12.1)
--- NOTE | 2024-06-30 08:34 | PC.NURSE ---
daughter in law at the bedside.
[2024-06-30 08:42] LABS: Base Excess ABG -4.1 mmol/L (0-2); HCO3 ABG 19.2 mmol/L (23-29); Oxygen Content ABG 19.6 %vol (16.0-22.0); Oxygen Saturation ABG 95.9 % (95-97); Oxyhemoglobin 95.2 % (94-100); PCO2 ABG 30.7 mmHg (35-45); PO2 ABG 88.3 mmHg (75-85); pH ABG 7.42 (7.35-7.45)
[2024-06-30 08:43] LABS: Device ROOM AIR; Modified Allen's Test Pass; Site Drawn LEFT RADIAL
[2024-06-30 08:48] LABS: Influenza A QL RT-PCR Negative (Negative); Influenza B QL RT-PCR Negative (Negative); RSV RNA, RT-PCR Negative (Negative); SARS-CoV-2 RNA PCR Negative (Negative)
[2024-06-30 08:50] LABS: Alanine Aminotransferase 14 U/L (16-63); Anion Gap 15 mmol/L (4-12); Aspartate Amino Transferase 14 U/L (15-37); Bilirubin,Total 0.6 mg/dL (0.00-1.00); Blood Urea Nitrogen 23 mg/dL (7-18); Calcium 8.6 mg/dL (8.5-10.1); Carbon Dioxide 22 mmol/L (21-32); Chloride 105 mmol/L (98-108); Estimated CRCL calculation 42 ml/min; Estimated Glomerular Filt Rate 45; Glucose 214 mg/dL (70-99); Osmolality Calculated 303 mOsm/kg (285-295); Sodium 142 mmol/L (136-145)
[2024-06-30 08:51] LABS: Albumin Level 3.3 g/dL (3.4-5.0); Alkaline Phosphatase 88 U/L (46-116); Total Protein 6.9 g/dL (6.4-8.2); Troponin I 90.8 ng/L (0.00-60.4)
[2024-06-30 08:52] LABS: NT Pro B Type Natriuretic Pept 3736 pg/mL (0-125)
--- NOTE | 2024-06-30 09:08 | PC.NURSE ---
updated patient regarding return call from [facility] for admission. patient and daughter in law verbalized understanding
--- NOTE | 2024-06-30 09:48 | PC.NURSE ---
patient resting on stretcher with daughter in law at the bedside
--- NOTE | 2024-06-30 10:07 | PC.NURSE ---
spoke with pharmacy, Rowena, with pharmacy, to come down to ER and assist with Amiodarone order.
--- NOTE | 2024-06-30 10:13 | PC.NURSE ---
patient is resting on stretcher. daughter in law at the bedside. patient is aware that we are waiting on placement assignment at [facility].
--- NOTE | 2024-06-30 10:14 | PC.NURSE ---
EKG being completed, lab at the bedside, radiology outside the door to take patient for imaging
--- NOTE | 2024-06-30 10:20 | ECG_ITS ---
Test Date: 2024-06-30 10:29:30 Measurements Intervals [place] Rate: 80 P: 79 MT: 185 QRS: 250 QRSD: 164 T: 55 QT: 425 QTc: 492 Interpretive Statements SINUS RHYTHM RIGHT BUNDLE BRANCH BLOCK [120+ ms QRS DURATION, UPRIGHT V1, 40+ ms S IN I/aVL/V4/V5/V6] Compared to ECG 06/30/2024 07:44:10 Atrial fibrillation no longer present Electronically Signed On 07-01-2024 09:37:09 CDT by Pool Stauffer M.D.
--- NOTE | 2024-06-30 10:27 | PC.NURSE ---
patient currently at nsr 86. will hold on amiodarone gtt at this time. cardiopulmonary at the bedside repeating ekg
[2024-06-30 11:41] LABS: Troponin I 88.4 ng/L (0.00-60.4)
--- NOTE | 2024-07-01 12:11 | PC.NURSE ---
PRELIMINARY BLOOD CULTURE RESULTS X2: NO GROWTH
== END 2024-06-30 11:24 | disposition short-term general hospital (02) ==
PROVIDERS: Emergency Provider Emergency Medicine
DX: N17.9 Acute kidney failure, unspecified (principal); R06.00 Dyspnea, unspecified; I48.20 Chronic atrial fibrillation, unspecified; R79.89 Other specified abnormal findings of blood chemistry; E11.9 Type 2 diabetes mellitus without complications; E78.5 Hyperlipidemia, unspecified; I48.91 Unspecified atrial fibrillation; I25.10 Atherosclerotic heart disease of native coronary artery without angina pectoris; I10 Essential (primary) hypertension; Z79.01 Long term (current) use of anticoagulants; Z79.899 Other long term (current) drug therapy; Z79.84 Long term (current) use of oral hypoglycemic drugs; Z87.891 Personal history of nicotine dependence; Z20.822 Contact with and (suspected) exposure to COVID-19
CPT/HCPCS: 36415; 36600; 71045; 80053; 82805; 83880; 84484; 85018; 85025; 85610; 85730; 87040; 87637; 93005; 96374; 99285; J7040

== ENCOUNTER 2024-06-30 12:02 | Observation (INO) | payer MEDICARE, OTHER, SELFPAY ==
[2024-06-30] VITALS (9 sets, daily range): BP systolic 116–134; BP diastolic 83–97; PULSE 73–90; RESP 18–24; TEMP 36.6–36.9; O2SAT 97–100; BMI 34.0
--- NOTE | ~2024-06-30 | XR_ITS ---
MODIFIED ESOPHAGRAM HISTORY: Possible aspiration TECHNIQUE: Modified barium esophagram was performed on 07/02/2024. I administered fluoroscopy and per formed the exam with speech pathologist. Patient was seated for lateral fluoroscopic imaging for ing estion of thin liquids, pudding, solids and quantified amounts, followed by thin liquids in uncontrol led amounts. This was recorded on tape. A single fluoroscopic spot image was also recorded. The DAP f or this procedure was 1.3 Gycm2. The amount of fluoroscopy time used during this procedure was 1.3 mi nutes. FINDINGS: C3-C4 anterior spinal fusion with anterior plate and screw fixation. There is also a more extensive i nstrumented posterior spinal fusion with bilateral vertical david and lateral mass screws extending fro m C2 through at least C6. Oral stage: Adequate function. Pharyngeal stage: Adequate function. Cervical/esophageal stage: Adequate function. IMPRESSION: Patient tolerated regular consistency oral feedings in the upright position. Please terrance elate with speech pathologist findings and specific feeding recommendations. Reviewed, dictated and finalized at location A. IMPRESSION: Patient tolerated regular consistency oral feedings in the upright position. Please correlate with speech pathologist findings and specific feedi ng recommendations.
--- NOTE | ~2024-06-30 | US_ITS ---
EXAMINATION: US right upper quadrant DATE: 07/01/2024 13:14 INDICATION: Right upper quadrant abdominal pain. TECHNIQUE: Multiple grayscale and Doppler ultrasound images of the abdomen were obtained. COMPARISON: Chest CT 08/06/2023 FINDINGS: The visualized portions of the head and body of the pancreas are normal. The liver is rekha l without focal lesion. There is normal flow in main portal vein. The gallbladder is contracted. No g allstones or sonographic Gutiérrez sign. The common duct is normal and measures 5 mm. IMPRESSION: 1. Normal right upper quadrant ultrasound. Reviewed, dictated and finalized at location B.
--- NOTE | ~2024-06-30 | US_ITS ---
EXAMINATION: US thyroid DATE: 06/30/2024 20:15 INDICATION: Enlarged thyroid. TECHNIQUE: Multiple ultrasound images of the thyroid were obtained. COMPARISON: Chest CT 08/06/23 FINDINGS: The right thyroid lobe measures 4.0 x 1.9 x 2.1 cm. The left thyroid lobe measures 4.0 x 1.8 x 1.8 c m. There is normal echotexture and echogenicity throughout the thyroid gland. No discrete nodules id entified. Normal vascular flow is present. IMPRESSION: 1. Normal thyroid. Reviewed, dictated and finalized at location B. IMPRESSION: 1. Normal thyroid.
--- NOTE | 2024-06-30 12:15 | ADMGEN ---
This patient, Dante Gil, was admitted to Intensive Care Unit-8. Patient/family oriented to hospital policies and general routines including ID bracelet, bed and alarms, visiting hours, pain management, procedures, bathroom and other care routines, personal items, smoking policy, room service/diet, and visiting hours. Information on how to activate the Rapid Response Team has been discussed. Patient/Family are encouraged to report perceived risks to care and to ask questions if they do not understand what they are told or what they should do.
[2024-06-30 14:15] LABS: MRSA (PCR) NOT DETECTED (NOT DETECTE)
--- NOTE | 2024-06-30 17:22 | P.HP_ITS ---
H&P: HPI History of Present Illness Date/Time: 06/30/24 17:22 Chief Complaint: Shortness of breath Narrative: 74yo male with AFib, COPD, CAD, lung CA and DM here for shortness of breath. Patient developed increasing shortness of breath and wheezing about 2 days before admission. Was associated with chest tightness and pressure. The chest discomfort would improve after coughing. The chest pain was pleuritic in nature. It felt like a band under both breasts. He normally uses albuterol 1-2 times per day but had to increase this to 4 times a day. He was having productive cough. Symptoms would improve if he can control his breathing. No nausea associated with the chest discomfort. No radiation of the pain. No fever chills. He does have dysphagia on occasion usually about once a week. He does feel racing heart and palpitations about 3-4 times per week. He has never had a covering machine tender at home. His last chemical stress test was 2 months ago and was within normal limits. He has sleep apnea and wears noninvasive ventilation for most of the night but usually finds the mask on the floor in the morning. He does not wear oxygen at home. He did have nausea and vomiting this morning on presentation to the emergency room. The the emesis was bilious. Not associated with chest pain. No dysuria or hematuria. No melena hematochezia. No hematemesis. He is on Eliquis for his AFib. It is unclear if he has chronic atrial fibrillation or paroxysmal atrial fibrillation. He gets the majority of his care at the [facility]. He presented to the emergency room for evaluation because of persistent shortness of breath. In the emergency room, was tachycardic at 146. Respiratory rate was 24. He is on 100% on room air. Blood pressure was 95/82. He was afebrile. CBC was normal. ABG 7.4 on room air. Serum bicarb normal but anion gap 15. BUN 23 and creatinine 1.5. Glucose 214. LFTs normal. BNP 3736. Troponin elevated at 91 but trending down on repeat (less than 60 is normal). MRSA nasal swab was negative. Influenza, RSV and COVID PCR nasal swab was negative. Chest x-ray showed stable volume loss of the left hemithorax with stable airspace opacities in the medial left mid and upper lung zones c/w XRT fibrosis. He has a hx of lung CA treated with XRT and chemotherapy. EKG showed atrial fibrillation with RVR. Says he was given 1 dose of diltiazem 5 mg IV once. Blood pressure became soft. He received a fluid bolus of 500 mL. Amiodarone was being considered but patient converted to normal sinus rhythm. He was transferred for further care. He has been dealing with bed bugs at home. Review of Systems Review of Systems: All systems reviewed & are unremarkable except as noted in HPI and below [facility] Past Medical History Medical History (Updated 06/30/24 @ 18:32 by Claude Murray MD) Afib CKD (chronic kidney disease) COPD (chronic obstructive pulmonary disease) Coronary artery disease stents x5 Hx of arterial ischemic stroke Hypertension Lung cancer s/p chemo and XRT 2018 Morbid obesity RICARDO (obstructive sleep apnea) Type 2 diabetes mellitus Surgical History Surgical History H/O neck surgery x3 History of carpal tunnel release bilateral History of total knee arthroplasty S/P appendectomy Family History Family History (Updated 06/30/24 @ 18:23 by Claude Murray MD) Mother Diabetes mellitus Father Heart disease Social History Social History (Updated 06/30/24 @ 18:24 by Claude Murray MD) Social History: Smoked up to 2ppd x 50yrs. Quit in 2009. One alcoholic drink per week. No hx of drug use. Home with his Code status - Full Surrogate decision maker - his Smoking packs per day: 2 Smoking cigarettes per day: 40.0 Years smoked: 50 Smoking pack-years: 100.00 Smoking status: Former smoker Tobacco type: cigarettes Smoking end date: 09/03/79 Alcohol intake: former Substance use: former Do You Feel Safe in your Home?: Yes Lack of Transportation: YES Lack of Food: Never True Current Housing: I Have Housing Concerned About Future Housing: No Difficulty Paying Gas/Electric Bills: No Difficulty Paying for Meds: YES Currently Unemployed: No Education: High School Diploma/GED Difficulty w/ Childcare or Family Care: No Spiritual care concerns: No Meds Home Medications and Allergies Home Medications Medication Instructions Recorded Confirmed Type apixaban 5 mg tablet 5 mg PO BID 08/15/22 06/30/24 History carvedilol 25 mg tablet 25 mg PO BID 08/15/22 06/30/24 History empagliflozin 25 mg tablet 12.5 mg PO DAILY 08/15/22 06/30/24 History hydroxychloroquine 200 mg tablet 200 mg PO BID 08/15/22 06/30/24 History melatonin 5 mg tablet 5 mg PO HS 08/15/22 06/30/24 History metformin 1,000 mg tablet 1,000 mg PO BID 08/15/22 06/30/24 History rosuvastatin 10 mg tablet 10 mg PO QHS 08/15/22 06/30/24 History spironolactone 25 mg tablet 12.5 mg PO EVERY OTHER DAY 08/15/22 06/30/24 History tiotropium 2.5 mcg-olodaterol 2.5 1 puff inhalation DAILY 08/15/22 06/30/24 History mcg/actuation mist for inhalation (Stiolto Respimat) albuterol sulfate 90 mcg/actuation 2 puff inhalation QID PRN 10/03/23 06/30/24 Rx aerosol inhaler shortness of breath or wheezing #8.5 grams amlodipine 2.5 mg-benazepril 10 mg 1 cap PO DAILY 06/30/24 06/30/24 History capsule ciclesonide 160 mcg/actuation 1 puff inhalation BID 06/30/24 06/30/24 History aerosol inhaler (Alvesco) clopidogrel 75 mg tablet 75 mg PO DAILY 06/30/24 06/30/24 History Allergies Allergy/AdvReac Type Severity Reaction Status Date / Time No Known Allergies Allergy Verified 06/30/24 07:58 Vital Signs Vital Signs - 24 hr 06/30/24 12:26 06/30/24 14:00 06/30/24 14:00 Temperature 97.9 F Pulse Rate 90 87 Respiratory Rate 24 H Blood Pressure 134/97 H 116/83 Pulse Oximetry 100 Oxygen Delivery Oxygen Flow Rate 06/30/24 16:00 06/30/24 16:00 06/30/24 16:00 Temperature 98.1 F Pulse Rate 82 73 87 Respiratory Rate 18 22 H Blood Pressure 116/83 Pulse Oximetry 98 100 Oxygen Delivery Nasal Cannula Oxygen Flow Rate 2 Exam Narrative: AF 98.1 116/83 20 97% 2L Gen - well appearing male in no acute respiratory distress who is nontoxic- appearing lying semi recumbent in bed HEENT - normocephalic. Atraumatic. Pupils equal round and reactive. Extr aocular motions intact. Sclera mildly injected and anicteric. Nares patent. Oropharynx was clear. No oral lesions. Moist mucous membranes. Tongue was midline. Palate nicole symmetrically. No facial asymmetry. Neck - neck was supple. No dominant adenopathy or masses. 2+ carotid upstrokes. Thyroidmegaly Chest - inspiratory and expieratory high pitched wheeze throughout. nml RR. Tight CV - heart was regular rate and rhythm. S1-S2. No murmurs gallops or rubs. Abd - abdomen was soft. Nondistended. Positive bowel sounds. No organomegaly or masses. obese. Mild tenderness to the RUQ. No guarding or rebound Ext - no clubbing, cyanosis or edema. 2+ DP pulses bilaterally. Neuro - patient is alert and oriented x4. Strength is 5/5 in both upper and lower extremities. Cranial nerves 2-12 are intact. Speech is clear. Psych - normal mood and affect. Patient is pleasant and cooperative. Skin - warm and dry. No rashes noted. No bug bites appreciated. Assessment and Plan Assessment and plan (1) Atrial fibrillation with rapid ventricular response: Code(s): I48.91 - Unspecified atrial fibrillation Status: Acute Assessment and Plan: Patient presents with SOB and found to have AFib RVR. He has a hx of AFib and is on Coreg and Eliquis. Suspect he has pAFib that converted to AFib/RVR related to his increased albuterol use. Resume Coreg and Eliquis. Follow on tele. Check Echo (2) Elevated troponin: Code(s): R79.89 - Other specified abnormal findings of blood chemistry Status: Acute Assessment and Plan: Mildly elevated and trending down. Recent stress test presumably normal. EKG showing no acute ST-T wave changes. [place] related to RVR and no ACS. Monitor (3) COPD (chronic obstructive pulmonary disease): Code(s): J44.9 - Chronic obstructive pulmonary disease, unspecified Status: Acute Assessment and Plan: Patient with COPD exacerbation. ABG noted. Will add Xopenex at low dose. Add Solu-Medrol. Mucinex to help with cough production. Speech therapy to see for his hx of dysphagia. Consider CHF if no improvement but felt less likely. (4) CKD (chronic kidney disease): Code(s): N18.9 - Chronic kidney disease, unspecified Status: Acute Assessment and Plan: Cr 1.5 on admission. Baseline Cr 1.1-1.5 over the past few years. Suspect he is at his baseline Follow (5) RICARDO (obstructive sleep apnea): Code(s): G47.33 - Obstructive sleep apnea (adult) (pediatric) Status: Acute Assessment and Plan: Will resume his NIV here. Encourage compliance. (6) Dysphagia: Code(s): R13.10 - Dysphagia, unspecified Status: Acute Assessment and Plan: Speech to follow (7) Infestation by bed bug: Code(s): B88.8 - Other specified infestations Status: Acute Assessment and Plan: ID nurse to assess. Hold on treatment at this time. Plan DVT prophyalxis - Eliquis Code status - full Hospitalist MIPS Advance Care Plan I have confirmed that the patient's Advanced Care Plan is present, code status is documented, or surrogate decision maker is listed in patient medical record.: Yes Medication Reconciliation I have utilized all available resources to obtain, update and review the patients current medications (includes all prescriptions, OTC, herbals, cannabis, and nutritional supplements).: Yes
[2024-06-30] MEDS: LEVALBUTEROL NEB 1.25 MG/3 ML 0.63 MG INHALATION (20:20)
--- NOTE | 2024-06-30 20:36 | PCRCNOTE ---
Pt does not wear CPAP at home & does not want one here
[2024-06-30] MEDS: ROSUVASTATIN 10 MG TABLET PO (21:00)
[2024-06-30] MEDS: MELATONIN 5 MG TABLET PO (21:32)
[2024-06-30] MEDS: guaiFENesin 12 HR 600 MG TABCR PO (21:33)
[2024-06-30] MEDS: carvediloL 25 MG TABLET PO (21:33)
[2024-06-30] MEDS: APIXABAN 5 MG TABLET PO (21:33)
[2024-07-01] VITALS (22 sets, daily range): BP systolic 129–153; BP diastolic 79–93; PULSE 78–98; RESP 18–24; TEMP 36.1–36.9; O2SAT 93–100
--- NOTE | 2024-07-01 | ECHO_ITS ---
Patient Info Name: Dante Gil Age: 74 years : 1950 Gender: Male Ht: 66 in Wt: 210 lbs BSA: 2.14 m2 HR: 83 bpm BP: 143 / 92 mmHg Heart Rhythm: Sinus Rhythm Technical Quality: Fair Exam Date: 07/01/2024 10:42 AM Exam Location: Echo Lab Patient Status: Outpatient Admit Date: 06/30/2024 Staff Ordering Physician: Claude Murray MD [employer] Clippings: Freddy Beth RDCS Attending Provider: Claude Murray MD Exam Type: CA echo doppler color flow Study Info Indications I48.1 - Persistent atrial fibrillation Complete two-dimensional, color flow and Doppler transthoracic echocardiogram is performed. Summary 1. Complete two-dimensional, color flow and Doppler transthoracic echocardiogram is performed. 2. Left ventricular chamber dimension is normal. 3. Left ventricular systolic function is normal, estimated at 50-55%. 4. There is mildly increased left ventricular wall thickness. 5. Right ventricular systolic function is normal. 6. Left atrial chamber dimension is moderately enlarged. 7. There is trace mitral valve regurgitation. 8. There is trace tricuspid valve regurgitation. Left Ventricle Left ventricular chamber dimension is normal. Left ventricular systolic function is normal, estimated at 50-55%. There is mildly increased left ventricular wall thickness. The left ventricular diastolic function is indeterminate. Right Ventricle Right ventricular chamber dimension is normal. Right ventricular systolic function is normal. Left Atria Left atrial chamber dimension is moderately enlarged. Right Atria Right atrial chamber dimension is normal. Atrial Septum Intact interatrial septum visualized by color flow imaging. Aortic Valve The aortic valve is not well visualized. There is no aortic valve stenosis. There is no aortic valve regurgitation. Pulmonic Valve The pulmonic valve is not well visualized. There is no pulmonic regurgitation. Mitral Valve There is trace mitral valve regurgitation. The mitral valve annulus is mildly calcified. Tricuspid Valve There is trace tricuspid valve regurgitation. Pericardium/Pleural There is no pericardial effusion. Inferior Vena Cava Normal inferior vena cava with >50% collapse upon inspiration consistent with normal right atrial pressure, 3 mmHg. Aorta The aortic root size at the sinus of Valsalva is normal. Left Ventricular Outflow Tract Name Value Normal LVOT 2D LVOT Diameter 2.0 cm LVOT Doppler LVOT Peak Gradient 4 mmHg LVOT Mean Gradient 1 mmHg LVOT VTI 20 cm LVOT VTI/AV VTI Ratio 1.1 LVOT Stroke Volume 62 ml LVOT CO 5.3 l/min LVOT CI 2.5 l/min/m2 Pulmonic Valve Name Value Normal PV Doppler PV Peak Gradient 4 mmHg Mitral Valve Name Value Normal MV Doppler MV Decel [place] 1,019 cm/s2 MV PHT 23 ms MV Area (PHT) 9.4 cm2 4.0-5.0 MV Diastolic Function MV E Peak Velocity 82 cm/s MV A Peak Velocity 64 cm/s MV E/A 1.3 MV Decel Time 81 ms Tricuspid Valve Name Value Normal TV Regurgitation Doppler TR Peak Velocity 183 cm/s TR Peak Gradient 13 mmHg Estimated PAP/RSVP RA Pressure 3 mmHg <=5 PA Systolic Pressure 16 mmHg <36 RV Systolic Pressure 16 mmHg <36 Aorta Name Value Normal Ascending Aorta Ao Root Diameter (MM) 2.4 cm Ao Root Diam Index (MM) 1.1 cm/m2 Aortic Valve Name Value Normal AV Doppler AV Peak Velocity 88 cm/s AV Peak Gradient 3 mmHg AV Mean Gradient 2 mmHg AV VTI 18 cm AV Area (Cont Eq VTI) 3.5 cm2 >=3.0 AV Area (Cont Eq Sam) 3.4 cm2 AV Regurgitation 2D LVOT Area 3.2 cm2 Ventricles Name Value Normal LV Dimensions 2D/MM IVS Diastolic Thickness (2D) 0.9 cm 0.6-1.0 IVS Diastole Thickness (MM) 0.8 cm 0.6-1.0 LVID Diastole (2D) 5.4 cm 4.2-5.8 LVID Diastole (MM) 7.6 cm 4.2-5.8 LVIW Diastolic Thickness (2D) 1.0 cm 0.6-1.0 LVIW Diastolic Thickness (MM) 0.8 cm 0.6-1.0 LVID Systole (2D) 4.3 cm 2.5-4.0 LVID Systole (MM) 5.7 cm 2.5-4.0 LVOT Diameter 2.0 cm LV Mass (2D Cubed) 189.65 g 88.00-224.00 LV Mass Index (2D Cubed) 89 g/m2 49-115 Relative Wall Thickness (2D) 0.36 LV Mass (MM Cubed) 274.85 g 88.00-224.00 LV Mass Index (MM Cubed) 128 g/m2 49-115 Relative Wall Thickness (MM) 0.20 LV Fractional Shortening/Ejection Fraction 2D/MM LV Fractional Shortening (2D) 20 % 25-43 LV Fractional Shortening (MM) 26 % 25-43 LV EF (MM Teicholz) 49 % 52-72 LV EF (2D Teicholz) 40 % 52-72 LV Diastolic Volume (4C MOD) 109 ml LV EF (4C MOD) 39 % LV Diastolic Volume (2C MOD) 93 ml LV EF (2C MOD) 37 % LV Diastolic Volume (BP MOD) 103 ml 62-150 LV Diastolic Volume Index (BP MOD) 48 ml/m2 34-74 LV Systolic Volume (BP MOD) 62 ml 21-61 LV Systolic Volume Index (BP MOD) 29 ml/m2 11-31 LV EF (BP MOD) 40 % 52-72 LV Diastolic Length (4C) 7.4 cm LV Systolic Length (4C) 7.1 cm LV Stroke Volume (4C MOD) 42 ml Atria Name Value Normal LA Dimensions LA Dimension (MM) 4.7 cm 3.0-4.1 LA Volume (4C A-L) 79 ml LA Volume (BP A-L) 86 ml RA Dimensions RA Area (4C) 15.2 cm2 <=18.0 Report Signatures
--- NOTE | 2024-07-01 00:49 | ECG_ITS ---
Test Date: 2024-07-01 00:54:33 Measurements Intervals [place] Rate: 81 P: 93 NC: 186 QRS: -82 QRSD: 166 T: 8 QT: 435 QTc: 507 Interpretive Statements SINUS RHYTHM MARKED LEFT AXIS DEVIATION [QRS AXIS < -30] RIGHT BUNDLE BRANCH BLOCK [120+ ms QRS DURATION, UPRIGHT V1, 40+ ms S IN I/aVL/V4/V5/V6] Compared to ECG 06/30/2024 10:29:30 Left-axis deviation now present Electronically Signed On 07-01-2024 09:42:46 CDT by Pool Stauffer M.D.
[2024-07-01] MEDS: methylPREDNISolone SOD SUCC 125 MG VIAL 60 MG IV PUSH ×4 (00:55→18:14)
[2024-07-01] MEDS: LEVALBUTEROL NEB 1.25 MG/3 ML 0.63 MG INHALATION ×3 (02:10→20:05)
[2024-07-01 02:45] LABS: Troponin I < 0.012 ng/mL (0.000-0.034)
[2024-07-01 04:46] LABS: Basophils Absolute Auto 0.1 K/mm3 (0.0-0.1); Basophils Percent Auto 0.7 % (0.2-1.2); Eosinophils Percent Auto 0.3 % (0-4.4); Hematocrit 45.2 % (42.0-52.0); Hemoglobin 14.6 g/dL (14.0-18.0); Immature Granulocyte Absolute 0.04 K/mm3 (0.00-0.031); Immature Granulocyte Percent A 0.5 % (0-0.5); Lymphocytes Absolute Auto 3.13 K/mm3 (0.9-3.2); Lymphocytes Percent Auto 42.3 % (18.3-44.2); Mean Corpuscular HGB Conc 32.3 g/dl (32-36); Mean Corpuscular Hemoglobin 31.3 pg (26-34); Mean Platelet Volume 11.2 fl (7.4-10.4); Monocytes Absolute Auto 0.1 K/mm3 (0.1-0.6); Monocytes Percent Auto 1.4 % (2.6-8.5); Neutrophils Absolute Auto 4.1 K/mm3 (1.3-6.7); Neutrophils Percent Auto 54.8 % (45.5-73.1); Nucleated Red Blood Cells Perc 0.4 % (0.0-0.2); Platelet Count Result 153 k/mm3 (150-375); Red Blood Count 4.66 M/mm3 (4.6-6.20); Red Cell Distribution Width 14.5 % (11.5-14.5); White Blood Count 7.4 K/mm3 (4.5-10.0)
[2024-07-01 05:11] LABS: Troponin I < 0.012 ng/mL (0.000-0.034)
[2024-07-01 05:27] LABS: Alanine Aminotransferase 18 U/L (6-50); Albumin Level 4.1 g/dL (3.5-5.1); Alkaline Phosphatase 69 U/L (38-126); Anion Gap 9 mmol/L (4-12); Aspartate Amino Transferase 22 U/L (17-59); Bilirubin,Total 0.7 mg/dL (0.2-1.3); Blood Urea Nitrogen 24 mg/dL (9-20); Calcium 8.4 mg/dL (8.4-10.2); Carbon Dioxide 23 mmol/L (22-30); Chloride 107 mmol/L (98-107); Estimated CRCL calculation 49 ml/min; Estimated Glomerular Filt Rate 54; Glucose 164 mg/dL (65-110); Lipase 108 U/L (23-300); Potassium 4.2 mmol/L (3.4-5.0); Sodium 139 mmol/L (137-145)
--- NOTE | 2024-07-01 09:01 | PCSTNOTE ---
Delayed Bedside Swallow Evaluation, 8:50 am; Malia RN reported that patient is NPO for ultrasound at this time. Unsure when it will take place. Will contact SOCIAL MEDIA COORDINATOR when patient is able to participate.
[2024-07-01] MEDS: UMECLIDINIUM/VILANTEROL 62.5-25 MCG ELLIPTA 1 PUFF INHALATION (09:13)
--- NOTE | 2024-07-01 09:17 | PC.NURSE ---
This patient, Dante Gil, was transferred to [facility] on 07/01/24 at 0918. Personal belongings sent with patient. Report given to MONTY Hylton. Appropriate documentation sent with patient.
[2024-07-01 09:51] LABS: Thyroid Stimulating Hormone Reflex 0.935 uIU/mL (0.465-4.68)
[2024-07-01 11:37] LABS: Glucose Point of Care 173 mg/dl (65-105)
[2024-07-01] MEDS: CLOPIDOGREL BISULFATE 75 MG TABLET PO (14:07)
[2024-07-01] MEDS: EMPAGLIFLOZIN 12.5 MG TABLET PO (14:07)
[2024-07-01] MEDS: carvediloL 25 MG TABLET PO (14:08)
--- NOTE | 2024-07-01 15:02 | PCSTNOTE ---
Please refer to the Bedside Swallow Evaluation in the EMR. Please note, silent aspiration cannot be ruled out at bedside. The above pt was admitted with a dx COPD, CAD, and lung CA from home living with his spouse. He states he chokes on occasion but has learned to control it to a degree . He stated that he researched it and the valve isn't closing . He reported difficulty swallowing x 1 year. Oral motor exam was unremarkable, but pt is edentulous; he states he has upper and lower dentures but he no longer needs them to eat solid foods. He was able to dry swallow on command and exhibited a clear vocal quality prior to oral trials. Coughing was noted prior to any oral trials. He was positioned upright in the bed/repositioned himself. He was alert & oriented and able to follow commands. He is currently on a regular diet. He was tested with applesauce, pudding, & cracker. He was also tested with thin liquids in 3ml, 5ml as well as uncontrolled amounts via a cup & a straw. The oral stages appeared WNL. No oral residue, leakage, or pocketing was noted. During the pharyngeal stage, swallow reflex appeared prompt & laryngeal elevation adequate. No overt s/s of aspiration were exhibited immediately after trials but delayed coughing was noted upon ST exiting pt's room. Pt also reported on occasion during evaluation that he had to swallow twice to get it down. Due to pt's complaint of choking at times and c/o difficulty getting food to go down, a Modified Barium Swallow is recommended. Spoke with RN and provider re results and recommendations; downgrading diet to level 6 until MBS. Thank you for this referral.
[2024-07-01 17:39] LABS: Glucose Point of Care 341 mg/dl (65-105)
[2024-07-01] MEDS: HYDROXYCHLOROQUINE SULFATE 200 MG TABLET PO (18:14)
--- NOTE | 2024-07-01 18:34 | PM.IMPN ---
Progress Note: A&P Assessment and Plan (1) Atrial fibrillation with rapid ventricular response: Code(s): I48.91 - Unspecified atrial fibrillation Status: Inactive Assessment and Plan: Patient presents with SOB and found to have AFib RVR. He has a hx of AFib and is on Coreg and Eliquis. Suspect he has pAFib that converted to AFib/RVR related to his increased albuterol use. Resumed Coreg and Eliquis. Echo showing EF 50-55%with indeterminate diastolic dysfunction, LAE and normal RV fxn. Advance Coreg. Follow on tele. (2) Elevated troponin: Code(s): R79.89 - Other specified abnormal findings of blood chemistry Status: Inactive Assessment and Plan: Mildly elevated and trending down. Recent stress test normal by patient report EKG showing no acute ST-T wave changes. Freedom related to RVR and not ACS. Monitor (3) COPD (chronic obstructive pulmonary disease): Code(s): J44.9 - Chronic obstructive pulmonary disease, unspecified Status: Acute Assessment and Plan: Patient with COPD exacerbation. ABG noted. Xopenex added at low dose. Solu-Medrol started. Mucinex to help with cough production. Speech therapy to see for his hx of dysphagia. They recommended MBS and Level 6 diet for now Improved today. Change to oral steroids tomorrow (4) CKD (chronic kidney disease): Code(s): N18.9 - Chronic kidney disease, unspecified Status: Acute Assessment and Plan: Cr 1.5 on admission. Baseline Cr 1.1-1.5 over the past few years. Suspect he is at his baseline Follow (5) RICARDO (obstructive sleep apnea): Code(s): G47.33 - Obstructive sleep apnea (adult) (pediatric) Status: Acute Assessment and Plan: Continue NIV Encourage compliance. (6) Dysphagia: Code(s): R13.10 - Dysphagia, unspecified Status: Acute Assessment and Plan: Speech following. As above (7) Infestation by bed bug: Code(s): B88.8 - Other specified infestations Status: Acute Assessment and Plan: ID nurse to assess. Hold on treatment at this time. Plan RUQ pain - RUQ US normal. Lipase and LFTs normal. Pain better today. Follow. DVT prophyalxis - Eliquis Code status - full Subjective Date/time seen: 07/01/24 18:34 Interval history: 74yo male with AFib, COPD, CAD, lung CA and DM here for shortness of breath. His SOB is better. No problems overnight. No n/v. No diarrhea. RUQ abd pain better. Not been out of bed much. Less whezing Exam Narrative: AF 97.9 133/82 98 18 95% ra Gen - NARD Chest - distant BS with occasional expiratory rhonchi CV - RRR S1/S2; Tele showing short bouts of tachycardia Abd - abdomen was soft. Minimal RUQ tenderness. +BS Ext - no pedal edema. Neuro - patient is alert and appropriate Psych - normal mood and affect. Skin - warm and dry. Objective Data Vital Signs Vital Signs: Vital Signs - 24 hr 06/30/24 20:11 06/30/24 20:20 06/30/24 20:28 Temperature 98.4 F Pulse Rate 84 86 84 Respiratory Rate 24 H 20 20 Blood Pressure 134/96 H Pulse Oximetry 100 Oxygen Delivery Oxygen Flow Rate 06/30/24 21:33 07/01/24 00:07 06/30/24 20:00 Temperature 98.5 F Pulse Rate 87 84 84 Respiratory Rate 21 H Blood Pressure 129/88 Pulse Oximetry 99 Oxygen Delivery Oxygen Flow Rate 07/01/24 00:00 06/30/24 20:00 07/01/24 00:00 Temperature Pulse Rate 83 Respiratory Rate Blood Pressure Pulse Oximetry 97 98 Oxygen Delivery Nasal Cannula Nasal Cannula Oxygen Flow Rate 2 2 07/01/24 02:10 07/01/24 02:40 07/01/24 04:00 Temperature 98.0 F Pulse Rate 78 78 83 Respiratory Rate 20 18 18 Blood Pressure 143/92 H Pulse Oximetry 93 Oxygen Delivery Oxygen Flow Rate 07/01/24 04:00 07/01/24 04:00 07/01/24 08:00 Temperature Pulse Rate 83 88 Respiratory Rate Blood Pressure Pulse Oximetry 93 Oxygen Delivery Nasal Cannula Oxygen Flow Rate 2 07/01/24 08:00 07/01/24 08:00 07/01/24 09:33 Temperature 97.9 F Pulse Rate 88 88 89 Respiratory Rate 18 18 18 Blood Pressure 134/93 H 150/90 H Pulse Oximetry 97 97 100 Oxygen Delivery Nasal Cannula Oxygen Flow Rate 2 07/01/24 11:39 07/01/24 13:50 07/01/24 13:50 Temperature 97.5 F L Pulse Rate 91 93 Respiratory Rate 24 H 20 Blood Pressure 139/79 Pulse Oximetry 95 93 Oxygen Delivery Room Air Oxygen Flow Rate 07/01/24 14:02 07/01/24 14:08 07/01/24 10:30 Temperature Pulse Rate 98 97 90 Respiratory Rate 20 Blood Pressure Pulse Oximetry Oxygen Delivery Oxygen Flow Rate 07/01/24 12:00 07/01/24 16:00 07/01/24 16:00 Temperature 97.9 F Pulse Rate 91 96 98 Respiratory Rate 18 Blood Pressure 133/82 Pulse Oximetry 95 Oxygen Delivery Oxygen Flow Rate Intake/Output Intake/Output: Intake & Output 06/28/24 06/29/24 06/30/24 07/01/24 23:59 23:59 23:59 23:59 Intake Total 200 980 Output Total 500 1150 Balance -300 -170 Meds/Results Medications: Active Medications Generic Name Dose Route Start Last Admin Trade Name Freq PRN Reason Stop Dose Admin Albuterol 2 puff 06/30/24 18:40 Albuterol Sulfate (*Sp) Aerosol 1 Puff INHALATION QIDRT PRN shortness of breath or wheezing Apixaban 5 mg 06/30/24 21:00 07/01/24 14:10 Apixaban 5 Mg Tablet PO Not Given Q12HR ZHENG Carvedilol 37.5 mg 07/01/24 21:00 Carvedilol 12.5 Mg Tablet PO Q12HR ZHENG Clopidogrel Bisulfate 75 mg 07/01/24 09:00 07/01/24 14:07 Clopidogrel Bisulfate 75 Mg Tablet PO 75 mg DAILY ZHENG Administration Dextrose 12.5 gm 06/30/24 17:18 Dextrose 50% 25 Gm/50 Ml Syringe IV PUSH PRN PRN Hypoglycemia Protocol Empagliflozin 12.5 mg 07/01/24 09:00 07/01/24 14:07 Empagliflozin 12.5 Mg Tablet PO 12.5 mg DAILY ZHENG Administration Glucagon 1 mg 06/30/24 17:18 Glucagon For Inj 1 Mg Vial IM PRN PRN Hypoglycemia Protocol Glucose 15 gm 06/30/24 17:18 Glucose Oral Gel 15 Gm Of Glucse In 37.5 Gm Tube PO PRN PRN Hypoglycemia Protocol Guaifenesin 600 mg 06/30/24 21:00 07/01/24 14:10 Guaifenesin 12 Hr 600 Mg Tabcr PO Not Given Q12HR ZHENG Hydroxychloroquine Sulfate 200 mg 07/01/24 09:00 07/01/24 18:14 Hydroxychloroquine Sulfate 200 Mg Tablet PO 200 mg BID ZHENG Administration Dextrose 1,000 mls @ 100 mls/hr 06/30/24 17:18 Dextrose 5% 1,000 Ml IVPB PRN PRN Hypoglycemia Protocol Insulin Aspart 2 - 5 units 07/01/24 08:00 07/01/24 17:52 Insulin Aspart (*Bkc) 100 Units/Ml SUB-Q Not Given TIDWM ZHENG Protocol Insulin Aspart 1 - 2 units 06/30/24 21:00 06/30/24 21:00 Insulin Aspart (*Bkc) 100 Units/Ml SUB-Q Not Given HS ZHENG Protocol Levalbuterol HCl 0.63 mg 06/30/24 20:00 07/01/24 13:50 Levalbuterol Neb 1.25 Mg/3 Ml INHALATION 0.63 mg Q6HRT ZHENG Administration Melatonin 5 mg 06/30/24 21:00 06/30/24 21:32 Melatonin 5 Mg Tablet PO 5 mg HS ZHENG Administration Methylprednisolone Sodium Succinate 60 mg 07/01/24 00:00 07/01/24 18:14 Methylprednisolone Sod Succ 125 Mg Vial IV PUSH 60 mg Q6HR ZHENG Administration Miscellaneous Information 1 each 06/30/24 00:01 07/01/24 16:49 Nonformulary Drug (Ciclesonide [Alvesco] 160 Mcg/Actuation Hfa Aerosol Inhaler) Can Patien XX 07/30/24 00:00 Not Given CLARIFY ZHENG Non-Formulary Medication 1 puff 07/01/24 09:00 Ciclesonide [Alvesco] INHALATION 07/31/24 08:59 BID ZHENG Perflutren Lipid Microsphere 0 ml 06/30/24 18:37 Perflutren Lipid Microspheres 1.5 Ml Vial Diluted To 10 Ml Total Volume IV PUSH 07/03/24 18:38 ONCE PRN adequate visualization Protocol Rosuvastatin Calcium 10 mg 06/30/24 21:00 06/30/24 21:00 Rosuvastatin 10 Mg Tablet PO 10 mg QHS ZHENG Administration Umeclidinium/Vilanterol 1 puff 07/01/24 09:00 07/01/24 09:13 Umeclidinium/Vilanterol 62.5-25 Mcg Ellipta INHALATION 1 puff DAILY ZHENG Administration Radiology Results: ITS Impressions Thyroid Ultrasound 07/01/24 07:41 IMPRESSION: 1. Normal thyroid. Upper Quadrant Ultrasound 07/01/24 13:18 IMPRESSION: 1. Normal right upper quadrant ultrasound. Labs Labs: Laboratory Results - last 24 hr 07/01/24 07/01/24 07/01/24 01:57 04:26 11:35 WBC 7.4 RBC 4.66 Hgb 14.6 Hct 45.2 MCV 97.0 MCH 31.3 MCHC 32.3 RDW 14.5 Plt Count 153 MPV 11.2 H Immature Gran % (Auto) 0.5 Neut % (Auto) 54.8 Lymph % (Auto) 42.3 [place] % (Auto) 1.4 L Eos % (Auto) 0.3 Baso % (Auto) 0.7 Lymph # (Auto) 3.13 [place] # (Auto) 0.1 Eos # (Auto) 0.0 Baso # (Auto) 0.1 Abs Immat Gran (auto) 0.04 H Absolute Neuts (auto) 4.1 Absolute Nucleated RBC 0.030 H Nucleated RBC % 0.4 H Sodium 139 Potassium 4.2 Chloride 107 Carbon Dioxide 23 Anion Gap 9 BUN 24 H Creatinine 1.30 Estim Creat Clear Calc 49 Estimated GFR 54 L Glucose 164 H POC Capillary Glucose 173 H Calcium 8.4 Total Bilirubin 0.7 Direct Bilirubin 0.0 AST 22 ALT 18 Alkaline Phosphatase 69 Troponin I < 0.012 < 0.012 Total Protein 7.0 Albumin 4.1 Lipase 108 TSH (Reflex) 0.935 07/01/24 17:29 WBC RBC Hgb Hct MCV MCH MCHC RDW Plt Count MPV Immature Gran % (Auto) Neut % (Auto) Lymph % (Auto) [place] % (Auto) Eos % (Auto) Baso % (Auto) Lymph # (Auto) [place] # (Auto) Eos # (Auto) Baso # (Auto) Abs Immat Gran (auto) Absolute Neuts (auto) Absolute Nucleated RBC Nucleated RBC % Sodium Potassium Chloride Carbon Dioxide Anion Gap BUN Creatinine Estim Creat Clear Calc Estimated GFR Glucose POC Capillary Glucose 341 H Calcium Total Bilirubin Direct Bilirubin AST ALT Alkaline Phosphatase Troponin I Total Protein Albumin Lipase TSH (Reflex)
[2024-07-01] MEDS: APIXABAN 5 MG TABLET PO (20:30)
[2024-07-01] MEDS: ROSUVASTATIN 10 MG TABLET PO (20:30)
[2024-07-01] MEDS: guaiFENesin 12 HR 600 MG TABCR PO (20:30)
[2024-07-01] MEDS: carvediloL 12.5 MG TABLET 37.5 MG PO (20:30)
[2024-07-01] MEDS: MELATONIN 5 MG TABLET PO (20:30)
[2024-07-01] MEDS: INSULIN ASPART (*BKC) 100 UNITS/ML SUB-Q (20:35)
[2024-07-01 20:47] LABS: Glucose Point of Care 298 mg/dl (65-105)
[2024-07-01] MEDS: polyethylene glycoL 3350 17 GM POWD.PACK PO (21:47)
[2024-07-02] VITALS (26 sets, daily range): BP systolic 125–147; BP diastolic 69–94; PULSE 69–116; RESP 18–22; TEMP 36.5–36.7; O2SAT 93–100
[2024-07-02] MEDS: LEVALBUTEROL NEB 1.25 MG/3 ML 0.63 MG INHALATION ×4 (03:09→20:03)
[2024-07-02] MEDS: methylPREDNISolone SOD SUCC 125 MG VIAL 60 MG IV PUSH (06:00)
[2024-07-02 07:32] LABS: Glucose Point of Care 206 mg/dl (65-105)
[2024-07-02] MEDS: UMECLIDINIUM/VILANTEROL 62.5-25 MCG ELLIPTA 1 PUFF INHALATION (07:40)
[2024-07-02] MEDS: APIXABAN 5 MG TABLET PO ×2 (07:56→20:26)
[2024-07-02] MEDS: CLOPIDOGREL BISULFATE 75 MG TABLET PO (07:56)
[2024-07-02] MEDS: carvediloL 12.5 MG TABLET 37.5 MG PO ×2 (07:57→20:27)
[2024-07-02] MEDS: HYDROXYCHLOROQUINE SULFATE 200 MG TABLET PO ×2 (07:57→17:53)
[2024-07-02] MEDS: guaiFENesin 12 HR 600 MG TABCR PO ×2 (07:57→20:26)
[2024-07-02] MEDS: INSULIN ASPART (*BKC) 100 UNITS/ML SUB-Q ×4 (07:58→20:26)
[2024-07-02] MEDS: EMPAGLIFLOZIN 12.5 MG TABLET PO (07:58)
--- NOTE | 2024-07-02 09:09 | P.PNIM_ITS ---
Progress Note: A&P Assessment and Plan (1) CKD (chronic kidney disease): Code(s): N18.9 - Chronic kidney disease, unspecified Status: Acute (2) Infestation by bed bug: Code(s): B88.8 - Other specified infestations Status: Acute (3) Dysphagia: Code(s): R13.10 - Dysphagia, unspecified Status: Acute (4) COPD (chronic obstructive pulmonary disease): Code(s): J44.9 - Chronic obstructive pulmonary disease, unspecified Status: Acute (5) RICARDO (obstructive sleep apnea): Code(s): G47.33 - Obstructive sleep apnea (adult) (pediatric) Status: Acute Plan (1) Atrial fibrillation with rapid ventricular response: Code(s): I48.91 - Unspecified atrial fibrillation Status: Inactive Assessment and Plan: Patient presents with SOB and found to have AFib RVR. He has a hx of AFib and is on Coreg and Eliquis. Suspect he has pAFib that converted to AFib/RVR related to his increased albuterol use. Resumed Coreg and Eliquis. Echo showing EF 50-55%with indeterminate diastolic dysfunction, LAE and normal RV fxn. Advance Coreg. Follow on tele. (2) Elevated troponin: Code(s): R79.89 - Other specified abnormal findings of blood chemistry Status: Inactive Assessment and Plan: Mildly elevated and trending down. Recent stress test normal by patient report EKG showing no acute ST-T wave changes. [place] related to RVR and not ACS. Monitor (3) COPD (chronic obstructive pulmonary disease): Code(s): J44.9 - Chronic obstructive pulmonary disease, unspecified Status: Acute Assessment and Plan: Patient with COPD exacerbation. ABG noted. Xopenex added at low dose. Solu-Medrol started. Mucinex to help with cough production. Speech therapy to see for his hx of dysphagia. They recommended MBS and Level 6 diet for now Start methylprednisolone today, Change to prednisone 40 mg daily p.o. (4) CKD (chronic kidney disease): Code(s): N18.9 - Chronic kidney disease, unspecified Status: Acute Assessment and Plan: Cr 1.5 on admission. Baseline Cr 1.1-1.5 over the past few years. Suspect he is at his baseline Follow (5) RICARDO (obstructive sleep apnea): Code(s): G47.33 - Obstructive sleep apnea (adult) (pediatric) Status: Acute Assessment and Plan: Continue NIV Encourage compliance. (6) Dysphagia: Code(s): R13.10 - Dysphagia, unspecified Status: Acute Assessment and Plan: Speech following. As above (7) Infestation by bed bug: Code(s): B88.8 - Other specified infestations Status: Acute Assessment and Plan: ID nurse to assess. Hold on treatment at this time. DVT prophyalxis - Eliquis Code status - full Patient is off IV steroid, if condition continue to improve, may discharge patient tomorrow Subjective Date/time seen: 07/02/24 09:09 Interval history: I saw examined the patient today, patient feels better, still has weakness, is able to ambulate with physical therapist. Dyspnea has improved significantly. Mild cough. Patient afebrile, blood pressure stable, Exam Narrative: GENERAL: Pleasant, in no acute distress. Well-nourished. - EYES: EOMI. Anicteric. - HENT: Moist mucous membranes. - LUNGS: Scattered wheezing, rhonchi, o r rales. - CARDIOVASCULAR: Regular rate and rhyth m. No murmur. No JVD. - ABDOMEN: Soft, non-tender and non-dist ended. No palpable masses. - EXTREMITIES: No edema. Peripheral puls es 2+. Non-tender. - NEUROLOGIC: No focal neurological defi cits. CN II-XII grossly intact. - PSYCHIATRIC: Awake, Alert and oriented x 3. Appropriate mood and affect. - SKIN: No rashes or lesions. Warm. - LYMPH: No cervical lymphadenopathy. Objective Data Vital Signs Vital Signs: Vital Signs - 24 hr 07/01/24 09:33 07/01/24 11:39 07/01/24 13:50 Temperature 97.5 F L Pulse Rate 89 91 93 Respiratory Rate 18 24 H 20 Blood Pressure 150/90 H 139/79 Pulse Oximetry 100 95 Oxygen Delivery 07/01/24 13:50 07/01/24 14:02 07/01/24 14:08 Temperature Pulse Rate 98 97 Respiratory Rate 20 Blood Pressure Pulse Oximetry 93 Oxygen Delivery Room Air 07/01/24 10:30 07/01/24 12:00 07/01/24 16:00 Temperature Pulse Rate 90 91 96 Respiratory Rate Blood Pressure Pulse Oximetry Oxygen Delivery 07/01/24 16:00 07/01/24 20:05 07/01/24 20:05 Temperature 97.9 F Pulse Rate 98 89 Respiratory Rate 18 20 Blood Pressure 133/82 Pulse Oximetry 95 95 Oxygen Delivery Room Air 07/01/24 20:11 07/01/24 20:30 07/01/24 20:25 Temperature 97.0 F L Pulse Rate 88 89 90 Respiratory Rate 20 18 Blood Pressure 153/84 H Pulse Oximetry 97 Oxygen Delivery 07/01/24 20:00 07/01/24 20:00 07/01/24 22:07 Temperature Pulse Rate 90 90 Respiratory Rate Blood Pressure Pulse Oximetry 98 Oxygen Delivery Room Air 07/01/24 23:37 07/01/24 23:59 07/02/24 00:00 Temperature 97.6 F Pulse Rate 88 88 Respiratory Rate 18 Blood Pressure 133/81 Pulse Oximetry 97 93 Oxygen Delivery Room Air 07/02/24 02:00 07/02/24 03:09 07/02/24 03:17 Temperature Pulse Rate 116 H 79 87 Respiratory Rate 20 20 Blood Pressure Pulse Oximetry Oxygen Delivery 07/02/24 03:22 07/02/24 04:00 07/02/24 04:09 Temperature 97.7 F Pulse Rate 85 78 Respiratory Rate 18 Blood Pressure 125/69 Pulse Oximetry 93 97 Oxygen Delivery Room Air 07/02/24 05:56 07/02/24 07:40 07/02/24 07:40 Temperature Pulse Rate 89 89 Respiratory Rate 20 Blood Pressure Pulse Oximetry 95 Oxygen Delivery Room Air 07/02/24 07:48 07/02/24 07:57 07/02/24 08:00 Temperature 98.1 F Pulse Rate 83 93 87 Respiratory Rate 20 22 H Blood Pressure 147/94 H Pulse Oximetry 100 Oxygen Delivery Intake/Output Intake/Output: Intake & Output 06/29/24 06/30/24 07/01/24 07/02/24 23:59 23:59 23:59 23:59 Intake Total 200 980 870 Output Total 500 1150 Balance -300 -170 870 Meds/Results Medications: Active Medications Generic Name Dose Route Start Last Admin Trade Name Freq PRN Reason Stop Dose Admin Albuterol 2 puff 06/30/24 18:40 Albuterol Sulfate (*Sp) Aerosol 1 Puff INHALATION QIDRT PRN shortness of breath or wheezing Apixaban 5 mg 10/28/24 21:00 07/02/24 07:56 Apixaban 5 Mg Tablet PO 5 mg Q12HR ZHENG Administration Carvedilol 37.5 mg 07/01/24 21:00 07/02/24 07:57 Carvedilol 12.5 Mg Tablet PO 37.5 mg Q12HR ZHENG Administration Clopidogrel Bisulfate 75 mg 07/01/24 09:00 07/02/24 07:56 Clopidogrel Bisulfate 75 Mg Tablet PO 75 mg DAILY ZHENG Administration Dextrose 12.5 gm 06/30/24 17:18 Dextrose 50% 25 Gm/50 Ml Syringe IV PUSH PRN PRN Hypoglycemia Protocol Empagliflozin 12.5 mg 07/01/24 09:00 07/01/24 14:07 Empagliflozin 12.5 Mg Tablet PO 12.5 mg DAILY ZHENG Administration Glucagon 1 mg 06/30/24 17:18 Glucagon For Inj 1 Mg Vial IM PRN PRN Hypoglycemia Protocol Glucose 15 gm 06/30/24 17:18 Glucose Oral Gel 15 Gm Of Glucse In 37.5 Gm Tube PO PRN PRN Hypoglycemia Protocol Guaifenesin 600 mg 06/30/24 21:00 07/02/24 07:57 Guaifenesin 12 Hr 600 Mg Tabcr PO 600 mg Q12HR ZHENG Administration Hydroxychloroquine Sulfate 200 mg 07/01/24 09:00 07/02/24 07:57 Hydroxychloroquine Sulfate 200 Mg Tablet PO 200 mg BID ZHENG Administration Dextrose 1,000 mls @ 100 mls/hr 06/30/24 17:18 Dextrose 5% 1,000 Ml IVPB PRN PRN Hypoglycemia Protocol Insulin Aspart 2 - 5 units 07/01/24 08:00 07/02/24 07:58 Insulin Aspart (*Bkc) 100 Units/Ml SUB-Q 2 units TIDWM ZHENG Administration Protocol Insulin Aspart 1 - 2 units 06/30/24 21:00 07/01/24 20:35 Insulin Aspart (*Bkc) 100 Units/Ml SUB-Q 1 units HS ZHENG Administration Protocol Levalbuterol HCl 0.63 mg 06/30/24 20:00 07/02/24 07:40 Levalbuterol Neb 1.25 Mg/3 Ml INHALATION 0.63 mg Q6HRT ZHENG Administration Melatonin 5 mg 06/30/24 21:00 07/01/24 20:30 Melatonin 5 Mg Tablet PO 5 mg HS ZHENG Administration Methylprednisolone Sodium Succinate 60 mg 07/01/24 00:00 07/02/24 06:00 Methylprednisolone Sod Succ 125 Mg Vial IV PUSH 60 mg Q6HR ZHENG Administration Miscellaneous Information 1 each 06/30/24 00:01 07/01/24 16:49 Nonformulary Drug (Ciclesonide [Alvesco] 160 Mcg/Actuation Hfa Aerosol Inhaler) Can Patien XX 07/30/24 00:00 Not Given CLARIFY ZHENG Non-Formulary Medication 1 puff 07/01/24 09:00 Ciclesonide [Alvesco] INHALATION 07/31/24 08:59 BID ZHENG Perflutren Lipid Microsphere 0 ml 06/30/24 18:37 Perflutren Lipid Microspheres 1.5 Ml Vial Diluted To 10 Ml Total Volume IV PUSH 07/03/24 18:38 ONCE PRN adequate visualization Protocol Polyethylene Glycol 17 gm 07/01/24 21:17 07/01/24 21:47 Polyethylene Glycol 3350 17 Gm Powd.Pack PO 17 gm QAM PRN Administration Constipation Rosuvastatin Calcium 10 mg 06/30/24 21:00 07/01/24 20:30 Rosuvastatin 10 Mg Tablet PO 10 mg QHS ZHENG Administration Umeclidinium/Vilanterol 1 puff 07/01/24 09:00 07/02/24 07:40 Umeclidinium/Vilanterol 62.5-25 Mcg Ellipta INHALATION 1 puff DAILY ZHENG Administration Radiology Results: ITS Impressions Thyroid Ultrasound 07/01/24 07:41 IMPRESSION: 1. Normal thyroid. Upper Quadrant Ultrasound 07/01/24 13:18 IMPRESSION: 1. Normal right upper quadrant ultrasound. Labs Labs: Laboratory Results - last 24 hr 07/01/24 07/01/24 07/01/24 04:26 11:35 17:29 POC Capillary Glucose 173 H 341 H TSH (Reflex) 0.935 07/01/24 07/02/24 20:27 07:30 POC Capillary Glucose 298 H 206 H TSH (Reflex)
[2024-07-02 11:33] LABS: Glucose Point of Care 308 mg/dl (65-105)
--- NOTE | 2024-07-02 11:46 | PCSTNOTE ---
Please refer to the Modified Barium Swallow Evaluation in the EMR.
[2024-07-02] MEDS: predniSONE 20 MG TABLET 40 MG PO (13:06)
[2024-07-02 16:18] LABS: Glucose Point of Care 239 mg/dl (65-105)
[2024-07-02 20:03] LABS: Glucose Point of Care 323 mg/dl (65-105)
[2024-07-02] MEDS: ROSUVASTATIN 10 MG TABLET PO (20:26)
[2024-07-02] MEDS: MELATONIN 5 MG TABLET PO (20:27)
[2024-07-03] VITALS (17 sets, daily range): BP systolic 123–151; BP diastolic 76–94; PULSE 60–88; RESP 18; TEMP 36.5–37.2; O2SAT 92–98
[2024-07-03] MEDS: LEVALBUTEROL NEB 1.25 MG/3 ML 0.63 MG INHALATION ×3 (02:12→14:03)
[2024-07-03 08:41] LABS: Glucose Point of Care 193 mg/dl (65-105)
[2024-07-03] MEDS: carvediloL 12.5 MG TABLET 37.5 MG PO (08:50)
[2024-07-03] MEDS: APIXABAN 5 MG TABLET PO (08:50)
[2024-07-03] MEDS: CLOPIDOGREL BISULFATE 75 MG TABLET PO (08:50)
[2024-07-03] MEDS: HYDROXYCHLOROQUINE SULFATE 200 MG TABLET PO (08:50)
[2024-07-03] MEDS: guaiFENesin 12 HR 600 MG TABCR PO (08:50)
[2024-07-03] MEDS: EMPAGLIFLOZIN 12.5 MG TABLET PO (08:50)
[2024-07-03] MEDS: predniSONE 20 MG TABLET 40 MG PO (08:51)
[2024-07-03 12:15] LABS: Glucose Point of Care 260 mg/dl (65-105)
[2024-07-03] MEDS: INSULIN ASPART (*BKC) 100 UNITS/ML SUB-Q (12:26)
--- NOTE | 2024-07-03 12:42 | P.DS_ITS ---
DS: Admitting Diagnosis Discharge Date 07/03/2024 Admitting Diagnosis Shortness of breath DS: Discharge Diagnosis Discharge Diagnosis (1) CKD (chronic kidney disease): Code(s): N18.9 - Chronic kidney disease, unspecified Status: Acute (2) Infestation by bed bug: Code(s): B88.8 - Other specified infestations Status: Acute (3) Dysphagia: Code(s): R13.10 - Dysphagia, unspecified Status: Acute (4) COPD (chronic obstructive pulmonary disease): Code(s): J44.9 - Chronic obstructive pulmonary disease, unspecified Status: Acute (5) RICARDO (obstructive sleep apnea): Code(s): G47.33 - Obstructive sleep apnea (adult) (pediatric) Status: Acute DS: Summary Hospital Course Hospital Course: # Atrial fibrillation with rapid ventricular response: Patient presents with SOB and found to have AFib RVR. He has a hx of AFib and is on Coreg and Eliquis. Suspect he has pAFib that converted to AFib/RVR related to his increased albuterol use. Resumed Coreg and Eliquis. Echo showing EF 50-55%with indeterminate diastolic dysfunction, LAE and normal RV fxn. Advance Coreg. Follow on tele. # Elevated troponin: Mildly elevated and trending down. Recent stress test normal by patient report EKG showing no acute ST-T wave changes. [place] related to RVR and not ACS. Monitor # COPD (chronic obstructive pulmonary disease): Patient with COPD exacerbation. ABG noted. Xopenex added at low dose. Solu-Medrol started. Mucinex to help with cough production. Speech therapy to see for his hx of dysphagia. They recommended MBS and Level 6 diet for now Start methylprednisolone and switched to prednisone 40 mg daily p.o. will finish the course # CKD (chronic kidney disease): Cr 1.5 on admission. Baseline Cr 1.1-1.5 over the past few years. Suspect he is at his baseline Follow # RICARDO (obstructive sleep apnea): Continue NIV Encourage compliance. # Dysphagia: Speech following. As above # Infestation by bed bug: ID nurse to assess. Hold on treatment at this time. 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 Well-nourished. - EYES: EOMI. Anicteric. - HENT: Moist mucous membranes. - LUNGS: Scattered wheezing, rhonchi, o r rales. No respiratory distress - CARDIOVASCULAR: Regular rate and rhyth m. No murmur. No JVD. - ABDOMEN: Soft, non-tender and non-dist ended. No palpable masses. - EXTREMITIES: No edema. Peripheral puls es 2+. Non-tender. - NEUROLOGIC: No focal neurological defi cits. CN II-XII grossly intact. - PSYCHIATRIC: Awake, Alert and oriented x 3. Appropriate mood and affect. - SKIN: No rashes or lesions. Warm. - LYMPH: No cervical lymphadenopathy. DS: Data Data Completed and Pending Labs on day of discharge: Labs from last 24 hours 07/03/24 07/03/24 07/02/24 11:10 07:27 19:47 POC Capillary Glucose 260 H 193 H 323 H 07/02/24 15:58 POC Capillary Glucose 239 H Imaging Radiologist's impression: ITS Impressions Thyroid Ultrasound 07/01/24 07:41 IMPRESSION: 1. Normal thyroid. Upper Quadrant Ultrasound 07/01/24 13:18 IMPRESSION: 1. Normal right upper quadrant ultrasound. Modified Barium Swallow 07/02/24 11:49 IMPRESSION: Patient tolerated regular consistency oral feedings in the upright position. Please correlate with speech pathologist findings and specific feedin g recommendations. Discharge Plan Discharge Attending physician on discharge: Alexis Payne Discharging Clinician: Alexis Payne Anticipated Discharge Date/Time: 07/03/24 12:47 Patient Disposition: Home, Self-Care Activity: as tolerated Diet: heart healthy Patient Instructions: Antibiotic Form Stand Alone Forms: General Discharge Information Follow-up/Referrals: UNKNOWN,DOCTOR [Primary Care Provider] - 1 Week (Your PCP) Discharge Medications: New guaifenesin [Mucus Relief ER] 600 mg Tablet Extended Release 12hr 600 mg PO Q12HR Qty: 30 0RF prednisone 20 mg Tablet 40 mg PO DAILY@0800 Qty: 6 0RF Continued albuterol sulfate 90 mcg/actuation HFA aerosol inhaler 2 puff inhalation QID PRN (Reason: shortness of breath or wheezing) Qty: 8.5 0RF hydroxychloroquine 200 mg Tablet 200 mg PO BID apixaban 5 mg Tablet 5 mg PO BID empagliflozin 25 mg Tablet 12.5 mg PO DAILY spironolactone 25 mg Tablet 12.5 mg PO EVERY OTHER DAY metformin 1,000 mg Tablet 1,000 mg PO BID rosuvastatin 10 mg Tablet 10 mg PO QHS melatonin 5 mg Tablet 5 mg PO HS Stiolto Respimat 2.5-2.5 mcg/actuation Mist 1 puff INHALATION DAILY amlodipine-benazepril 2.5-10 mg Capsule 1 cap PO DAILY clopidogrel 75 mg Tablet 75 mg PO DAILY Alvesco 160 mcg/actuation Hfa Aerosol Inhaler 1 puff INHALATION BID Changed carvedilol 25 mg Tablet 37.5 mg PO BID Qty: 75 0RF Rx Instructions: must administer with a meal/food Date of admission: 06/30/24 12:02 Primary Care Provider: UNKNOWN,DOCTOR Admitting Provider: Claude Murray Attending physician on admission: Claude Murray Condition: Improved
--- NOTE | 2024-07-03 15:37 | PC.NURSE ---
Reviewed all discharge instructions including medications and last doses given with patient. Denies questions, comments or concerns at this time. Verbalizes understanding. Paper scrubs given to patient to put on. IV removed intact and radiation monitor removed at this time. Patient states ride will be here in approximately 30 min.
[2024-07-03 16:11] LABS: Glucose Point of Care 130 mg/dl (65-105)
== END 2024-07-03 16:10 | disposition home or self-care (01) ==
LOC: ANHICU 14:08 → ANHIMU 07-01 09:14
PROVIDERS: Internal Medicine; Nurse Practitioner Gerontology; Admitting Provider Internal Medicine; Visit Provider Internal Medicine
DX: I48.91 Unspecified atrial fibrillation (principal); R06.02 Shortness of breath; R79.89 Other specified abnormal findings of blood chemistry; R13.10 Dysphagia, unspecified; B88.8 Other specified infestations; I12.9 Hypertensive chronic kidney disease with stage 1 through stage 4 chronic kidney disease, or unspecified chronic kidney disease; E11.22 Type 2 diabetes mellitus with diabetic chronic kidney disease; N18.9 Chronic kidney disease, unspecified; G47.33 Obstructive sleep apnea (adult) (pediatric); J44.9 Chronic obstructive pulmonary disease, unspecified; I25.10 Atherosclerotic heart disease of native coronary artery without angina pectoris; Z95.5 Presence of coronary angioplasty implant and graft; Z85.118 Personal history of other malignant neoplasm of bronchus and lung; Z92.21 Personal history of antineoplastic chemotherapy; Z92.3 Personal history of irradiation; Z87.891 Personal history of nicotine dependence; Z79.01 Long term (current) use of anticoagulants; Z79.84 Long term (current) use of oral hypoglycemic drugs; Z79.51 Long term (current) use of inhaled steroids
CPT/HCPCS: 36415; 76536; 76705; 80048; 80076; 82948; 83690; 84443; 84484; 85025; 87641; 92610; 92611; 93005; 93306; 94640; A9270; G0378; G0379; J1815; J2919; J7512